=== PATIENT | female | born 1965 | race Caucasian/White ===

== ENCOUNTER 2016-12-30 08:40 | Outpatient (CLI) | payer OTHER | END 2016-12-30 23:59 | DX: Z00.00 Encounter for general adult medical examination without abnormal findings (principal); E11.65 Type 2 diabetes mellitus with hyperglycemia; E55.9 Vitamin D deficiency, unspecified; E78.2 Mixed hyperlipidemia; E03.9 Hypothyroidism, unspecified; Z79.899 Other long term (current) drug therapy ==

== ENCOUNTER 2017-01-29 08:38 | Outpatient (CLI) | payer OTHER ==
--- NOTE | 2017-01-30 15:45 | Mammography Report ---
DIGITAL SCREENING MAMMOGRAM: 01/29/2017 CLINICAL INDICATION: A 51-year-old for screening. COMPARISON: 11/2013, 09/2011, 07/2010, 11/2009, 05/2009, 05/2007. TECHNIQUE: Routine CC and MLO projections were obtained of the breasts. FINDINGS: The breasts again demonstrate scattered fibroglandular densities bilaterally. Punctate, t ypically benign calcifications are present. In the left upper outer central breast, there is a possi ble nodule. Further evaluation with spot compression views and possible ultrasound is recommended. No mammographically suspicious findings are appreciated in the right breast. IMPRESSION: INCOMPLETE EXAMINATION. RECOMMENDATION: Additional evaluation of the left breast as above. BI-RADS category 0, incomplete. STANDARD QUALIFYING STATEMENTS 1. This examination was reviewed with the aid of Computer-Aided Detection (CAD). 2. A negative or benign imaging report should not delay biopsy if clinically suspicious findings are present. Consider surgical consultation if warranted. More than 5% of cancers are not identified by i maging. 3. Dense breasts may obscure an underlying neoplasm. JOB #: [id number] EXT JOB #:[id number]
== END 2017-01-29 08:39 | disposition home or self-care (01) ==
LOC: DI 08:38
PROVIDERS: ATTEND Physician Assistant Medical
DX: Z12.31 Encounter for screening mammogram for malignant neoplasm of breast (principal); R92.8 Other abnormal and inconclusive findings on diagnostic imaging of breast
CPT/HCPCS: 77067

== ENCOUNTER 2017-02-06 13:04 | Outpatient (CLI) | payer OTHER | END 2017-02-06 13:05 | disposition home or self-care (01) | LOC: SC 13:04 | PROVIDERS: ATTEND Internal Medicine Pulmonary Disease | DX: G47.10 Hypersomnia, unspecified (principal); G47.8 Other sleep disorders; R06.83 Snoring; R51 Headache | CPT/HCPCS: 99203; 99212 ==

== ENCOUNTER 2017-02-11 13:51 | Emergency (ER) | payer OTHER ==
--- NOTE | 2017-02-11 14:03 | ED Physician Documentation ---
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 Recurred again today while sitting at desk at work, and lasted about similar. 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 Pain was sharp left chest area.) Timing - onset during: Sleep, Light activity Timing - duration: Minutes (30 minutes to an hour) Timing - details: Abrupt onset, Now resolved Quality: Aching, Sharp Location: Left chest Radiation: Jaw Improved by: No: Rest Worsened by: No: Exertion, Inspiration, Movement, Position Associated symptoms: Shortness of air. No: Diaphoresis, Nausea, Feeling faint / dizzy, General Weakness, Palpitations, Cough Similar symptoms before: Has not had sx before Recently seen: Not recently seen Review of Systems Constitutional: denies: Fever, Chills Nose: denies: Rhinorrhea / runny nose, Congestion Throat: denies: Sore throat Respiratory: denies: Cough GI: denies: Abdominal Pain, Nausea, Vomiting, Diarrhea : denies: Dysuria, Frequency Skin: denies: Rash, Lesions Musculoskeletal: denies: Extremity swelling Neurologic: denies: Generalized weakness, Focal weakness, Numbness, Near syncope Psychiatric: denies: Depressed, Anxiety, Insomnia Endocrine: denies: Weight loss, Weight gain, Easy bruising / bleeding PD PAST MEDICAL HISTORY - Past Medical History Cardiovascular: High cholesterol, Other Respiratory: Asthma, Pneumonia, Shortness of breath Endocrine/Autoimmune: HyPOthyroidism, Other GI: None : Incontinence, Frequency HEENT: Other Psych: Depression Musculoskeletal: Osteoarthritis, Chronic back pain Derm: Eczema - Past Surgical History General: Appendectomy Ortho: ACL reconstruction, 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, Other HEENT: Tonsil/Adenoidectomy - Present Medications Home Medications: Ambulatory Orders Medication Instructions Recorded Confirmed Fluticasone [Flonase] 2 sprays BERNARDO DAILY 05/29/15 02/11/17 Fluticasone/Salmeterol [Advair 1 inh INH BID 05/29/15 02/11/17 100-50 Diskus] Levothyroxine Sodium [Synthroid] 0 mcg PO DAILY 02/11/17 02/11/17 - Allergies Allergies/Adverse Reactions: Allergies Allergy/AdvReac Type Severity Reaction Status Date / Time codeine AdvReac Intermediate Nausea/Vomi Verified 02/11/17 14:01 tting/Itchi ng Latex, Natural Rubber AdvReac Intermediate Itching Verified 02/11/17 14:01 povidone-iodine AdvReac Intermediate Itching Verified 02/11/17 14:01 [From Betadine] soap * [From Betadine] AdvReac Intermediate Itching Verified 02/11/17 14:01 Sulfa (Sulfonamide AdvReac Unknown Unknown Verified 02/11/17 14:01 Antibiotics) - Family History Family history: reports: CAD. denies: Venous thromboembolism, Aortic aneursym, Aortic dissection PD ED PE NORMAL - Vitals Vital signs reviewed: Yes - General General: Alert and oriented X 3, No acute distress, Well developed/nourished - HEENT HEENT: Ears normal, Pharynx benign - Neck Neck: Supple, no meningeal sign, No adenopathy - Cardiac Cardiac: RRR, No murmur - Respiratory Respiratory: Clear bilaterally, Other (slight chestwall tenderness left anterior chestwall. ) - Abdomen Abdomen: Soft, Non tender - Derm Derm: Normal color, Warm and dry - Extremities Extremities: No tenderness to palpate, Normal ROM s pain, No edema, No calf tenderness / cord - Neuro Neuro: Alert and oriented X 3, No motor deficit, Normal speech - Psych Psych: Normal mood, Normal affect Results - Vitals Vitals: Vital Signs - 24 hr 02/11/17 02/11/17 13:54 15:52 Temperature 36.7 C Heart Rate 76 58 L Respiratory 18 18 Rate Blood Pressure 102/42 L 98/66 O2 Saturation 97 97 Oxygen O2 Source Room air - EKG (time done) 14:20 Rate: Rate (enter#) (63) Rhythm: NSR [place]: Normal Intervals: Normal NE QRS: Normal Ischemia: Normal ST segments. No: ST elevation c/w ischemia, ST depression - Labs Labs: Laboratory Tests 02/11/17 02/11/17 02/11/17 14:25 14:25 14:25 WBC 6.9 RBC 4.34 Hgb 12.5 Hct 37.5 MCV 86.6 MCH 28.9 MCHC 33.4 RDW 13.2 Plt Count 267 MPV 8.3 Neut # 3.4 Lymph # 2.6 Cook # 0.5 Eos # 0.4 Baso # 0.1 Absolute Nucleated RBC 0.00 Nucleated RBCs 0.0 ESR Sodium 140 Potassium 3.7 Chloride 106 Carbon Dioxide 25 Anion Gap 9.0 BUN 14 Creatinine 0.8 Estimated GFR (MDRD) 76 L Glucose 100 Calcium 9.2 Total Bilirubin 0.3 AST 28 ALT 26 Alkaline Phosphatase 67 Troponin I < 0.04 Total Protein 7.0 Albumin 4.1 Globulin 2.9 Albumin/Globulin Ratio 1.4 Lipase 19 L 02/11/17 14:25 WBC RBC Hgb Hct MCV MCH MCHC RDW Plt Count MPV Neut # Lymph # Cook # Eos # Baso # Absolute Nucleated RBC Nucleated RBCs ESR 15 Sodium Potassium Chloride Carbon Dioxide Anion Gap BUN Creatinine Estimated GFR (MDRD) Glucose Calcium Total Bilirubin AST ALT Alkaline Phosphatase Troponin I Total Protein Albumin Globulin Albumin/Globulin Ratio Lipase - Rads (name of study) chest Radiology: Prelim report reviewed, EMP read contemporaneously (no acute) PD MEDICAL DECISION MAKING - ED course Complexity details: reviewed results, considered differential (clinically does not seem like pneumonia, injury. Clinically low risk for PE. ECG and CXR are okay. Negative troponin with pain episode being about 12 hours ago, should be valid. ), d/w patient Departure - Departure Disposition: 01 Home, Self Care Clinical Impression: Left sided chest pain Condition: Stable Record reviewed to determine appropriate education?: Yes Instructions: ED Chest Pain Atypical Unkn Cause Follow-Up: Noris Marie PA-C [Primary Care Provider] - Comments: Uncertain cause of the pain today, but no signs of threatening problems. Try Ibuprofen or Naproxen twice daily for 3-5 days. Add Tylenol if needed for pains. Recheck if not better over the next few days. Sooner if other symptoms develop with it. Discharge Date/Time: 02/11/17 15:56
[2017-02-11] MEDS ORDERED: ASPIRIN 325 MG TABLET PO STA (14:23)
[2017-02-11] MEDS ORDERED: LIDOCAINE VISCOUS 2% 15 ML UDC MM STA (14:23)
[2017-02-11] MEDS ORDERED: MAG HYDROX/AL HYDROX/SIMETH 30 ML UDC PO STA (14:23)
[2017-02-11] MEDS ORDERED: ASPIRIN 325 MG TABLET PO ONE (14:26)
[2017-02-11] MEDS ORDERED: LIDOCAINE VISCOUS 2% 15 ML UDC MM ONE (14:30)
[2017-02-11] MEDS ORDERED: MAG HYDROX/AL HYDROX/SIMETH 30 ML UDC ONE (14:30)
[2017-02-11 14:44] LABS: BASOPHILS # (AUTO) 0.1 10^3/uL (0.0-0.1); BASOPHILS % (AUTO) 0.9 %; EOSINOPHILS # (AUTO) 0.4 10^3/uL (0.0-0.7); EOSINOPHILS % (AUTO) 5.2 %; HCT - HEMATOCRIT 37.5 % (37.0-47.0); HGB - HEMOGLOBIN 12.5 g/dL (12.0-16.0); LYMPHOCYTES # (AUTO) 2.6 10^3/uL (1.5-3.5); LYMPHOCYTES % (AUTO) 38.2 %; MEAN CORPUSCULAR HEMOGLOBIN 28.9 pg (27.0-31.0); MEAN CORPUSCULAR HGB CONC 33.4 g/dL (32.0-36.0); MEAN CORPUSCULAR VOLUME 86.6 fL (81.0-99.0); MEAN PLATELET VOLUME 8.3 fL (7.9-10.8); MONOCYTES # (AUTO) 0.5 10^3/uL (0.0-1.0); MONOCYTES % (AUTO) 6.7 %; NEUTROPHILS # (AUTO) 3.4 10^3/uL (1.5-6.6); RED BLOOD COUNT 4.34 10^6/uL (4.20-5.40); RED CELL DISTRIBUTION WIDTH 13.2 % (12.0-15.0); UNCORRECTED WHITE BLOOD COUNT 6.9 x10^3/uL; WHITE BLOOD COUNT 6.9 x10^3/uL (4.8-10.8)
[2017-02-11 14:55] LABS: ALBUMIN/GLOBULIN RATIO 1.4 (1.0-2.2); BILIRUBIN,TOTAL 0.3 mg/dL (0.2-1.0); CALCIUM 9.2 mg/dL (8.5-10.3); CREATININE 0.8 mg/dL (0.4-1.0); POTASSIUM 3.7 mmol/L (3.5-5.0)
--- NOTE | 2017-02-11 15:23 | XRAY Preliminary Report ---
Exam: XR Chest 2 View PA/LAT IMPRESSION: No acute cardiopulmonary abnormality. [facility] SITE ID: [id number]
--- NOTE | 2017-02-11 15:25 | XRAY Report ---
EXAM: CHEST RADIOGRAPHY EXAM DATE: 02/11/2017 02:38 PM. CLINICAL HISTORY: Anterior chest pain today. COMPARISON: 12/12/2015. TECHNIQUE: 2 views. FINDINGS: Lungs/Pleura: No confluent lung consolidation. Normal lung volumes. Scarring and/or atelectasis at th e inferior lingula. No pleural effusion or pneumothorax. Mediastinum: Heart and mediastinal contours are unremarkable. Other: Thoracic scoliosis. IMPRESSION: No acute cardiopulmonary abnormality. [facility] Referring Provider Line: [phone] SITE ID: [id number]
[2017-02-11 15:53] VITALS: BP 98/66
== END 2017-02-11 15:56 | disposition home or self-care (01) ==
LOC: ED 13:51
DX: R07.9 Chest pain, unspecified (principal); E78.00 Pure hypercholesterolemia, unspecified; E03.9 Hypothyroidism, unspecified; M19.90 Unspecified osteoarthritis, unspecified site
CPT/HCPCS: 36415; 71020; 80053; 83690; 84484; 85025; 85651; 93005; 93010; 99283; 99285; A9270

== ENCOUNTER 2017-02-20 12:55 | Outpatient (CLI) | payer OTHER ==
--- NOTE | 2017-02-21 07:34 | Mammography Report ---
DIGITAL SPECIAL MAMMOGRAPHIC VIEWS OF THE BREASTS ADDITIONAL VIEWS OF THE LEFT BREAST: 02/20/2017 CLINICAL HISTORY: A 51-year-old female who had an asymmetrical density noted in the upper outer quadr ant of the left breast on recent screening mammogram dated 01/29/2017. The patient returns today for additional views of the left breast and possibly left breast ultrasound. COMPARISON: 05/14/2007, 05/29/2009, 12/05/2009, 07/12/2010, 09/10/2011, 12/02/2013, 01/29/2017. TECHNIQUE: Coned down compression craniocaudad and oblique lateral views as well as a medial lateral view of the left breast were obtained with Hologic full field digital mammography. FINDINGS: Additional views of the left breast once again demonstrate a mass-like asymmetrical densit y in the 2 o'clock position of the left breast 7 cm from the left nipple. This asymmetrical density m easures 1.4 cm. Recommend a left breast ultrasound for further evaluation. LEFT BREAST ULTRASOUND: TECHNIQUE: Real-time scanning was performed with automobile rental representative static images obtained. FINDINGS: Left breast ultrasound demonstrates an 0.6 cm by 0.7 cm by 1.1 cm benign cyst at the 3 o'cl ock position of the left breast 7 cm from the left nipple. This benign cyst correlates in size and lo cation to the asymmetrical density noted on patient's additional mammographic views taken today. IMPRESSION: 1. SMALL MASS/ASYMMETRICAL DENSITY NOTED ON RECENT SCREENING MAMMOGRAM AND ADDITIONAL VIEWS OF THE LE FT BREAST DONE TODAY REPRESENTS A BENIGN CYST AT THE 3 O'CLOCK POSITION OF THE LEFT BREAST MEASURING 1.1 CM BY 0.6 CM BY 0.7 CM. BIRADS CATEGORY 2-BENIGN FINDINGS. RECOMMENDATION: ANNUAL BILATERAL SCREENING MAMMOGRAM. COMMENT: The patient was informed of the benign results of her examinations today and encouraged to r eturn for routine screening mammogram in one year. STANDARD QUALIFYING STATEMENTS 1. This examination was reviewed with the aid of Computer-Aided Detection (CAD). 2. A negative or benign imaging report should not delay biopsy if clinically suspicious findings are present. Consider surgical consultation if warranted. More than 5% of cancers are not identified by i maging. 3. Dense breasts may obscure an underlying neoplasm. JOB #: [id number] EXT JOB #:[id number]
== END 2017-02-20 12:56 | disposition home or self-care (01) ==
LOC: DI 12:55
PROVIDERS: ATTEND Physician Assistant Medical
DX: N60.02 Solitary cyst of left breast (principal); R92.2 Inconclusive mammogram
CPT/HCPCS: 76642

== ENCOUNTER 2017-03-08 19:34 | Outpatient (CLI) | payer OTHER | END 2017-03-08 19:35 | disposition home or self-care (01) | LOC: SC 19:34 | PROVIDERS: ATTEND Internal Medicine Pulmonary Disease | DX: G47.33 Obstructive sleep apnea (adult) (pediatric) (principal); Z68.39 Body mass index [BMI] 39.0-39.9, adult | CPT/HCPCS: 95810 ==

== ENCOUNTER 2017-03-28 09:10 | Outpatient (CLI) | payer OTHER | END 2017-03-28 09:11 | disposition home or self-care (01) | LOC: LAB.R 09:10 | PROVIDERS: ATTEND Physician Assistant Medical | DX: E03.9 Hypothyroidism, unspecified (principal) | CPT/HCPCS: 84443 ==

== ENCOUNTER 2017-04-16 09:17 | Outpatient (CLI) | payer OTHER | END 2017-04-16 09:18 | disposition home or self-care (01) | LOC: SC 09:17 | PROVIDERS: ATTEND Internal Medicine Pulmonary Disease | DX: G47.33 Obstructive sleep apnea (adult) (pediatric) (principal) | CPT/HCPCS: 99212; 99214 ==

== ENCOUNTER 2017-09-23 14:01 | Outpatient (CLI) | payer OTHER | END 2017-09-23 14:02 | LOC: LAB.R 14:01 | PROVIDERS: ATTEND Internal Medicine | DX: I80.9 Phlebitis and thrombophlebitis of unspecified site (principal); Z79.899 Other long term (current) drug therapy | CPT/HCPCS: 84443; 85379; 85651; 86140 ==

== ENCOUNTER 2017-09-24 08:00 | Outpatient (CLI) | payer OTHER ==
[2017-09-24 14:08] LABS: CHOL/HDL RATIO 6.1 (<4.4); CHOLESTEROL 238 mg/dL; HDL CHOLESTEROL 39 mg/dL; LDL CHOLESTEROL,CALCULATED 178 mg/dL; LDL/HDL RATIO 4.6 (<4.4); VLDL CHOLESTEROL 21 mg/dL
== END 2017-09-24 08:01 | disposition home or self-care (01) ==
LOC: LAB.R 08:00
PROVIDERS: ATTEND Physician Assistant Medical
DX: E66.01 Morbid (severe) obesity due to excess calories (principal); E78.2 Mixed hyperlipidemia; Z79.899 Other long term (current) drug therapy
CPT/HCPCS: 80061; 83721

== ENCOUNTER 2017-09-24 19:39 | Outpatient (CLI) | payer OTHER ==
--- NOTE | 2017-09-24 22:28 | Ultrasound Report ---
EXAM: LEFT LOWER EXTREMITY VENOUS ULTRASOUND EXAM DATE: 09/24/2017 08:15 PM. CLINICAL HISTORY: Superficial phlebitis. COMPARISON: None. TECHNIQUE: Real-time sonographic vascular imaging was performed by the court operations clerk through the lower extremity utilizing both color-flow and Doppler spectral analysis. Multiple guest service representative static terell ges were saved for review. FINDINGS: Common Femoral Vein (CFV): Normal. CFV-GSV Junction: Normal. Profunda Femoral Vein (PFV): Normal. Femoral Vein (FV) Prox: Normal. Femoral Vein (FV) Mid: Normal. Femoral Vein (FV) Dist: Limited visualization. Popliteal Vein: Normal. Posterior Tibial Veins: Not well seen. Peroneal Veins: Not seen. Contralateral Side CFV: Normal. Other: Mildly complex debris-containing fluid collection in the posterior medial left knee measuring 3.6 x 0.9 x 1.4 cm. Given appearance and sonographic location, this most likely represents a complex [place]'s cyst. IMPRESSION: 1. Limited visualization of the distal superficial femoral, posterior tibial and peroneal veins. Give n the limitations, no evidence for deep venous thrombosis. 2. Mildly complex left popliteal fossa cyst. [facility] Referring Provider Line: [phone] SITE ID: [id number]
== END 2017-09-24 19:40 | disposition home or self-care (01) ==
LOC: DI 19:39
PROVIDERS: ATTEND Internal Medicine
DX: I80.9 Phlebitis and thrombophlebitis of unspecified site (principal); M71.22 Synovial cyst of popliteal space [Baker], left knee; E66.01 Morbid (severe) obesity due to excess calories; E78.2 Mixed hyperlipidemia; Z79.899 Other long term (current) drug therapy
CPT/HCPCS: 80061; 83721

== ENCOUNTER 2017-10-13 09:17 | Outpatient (CLI) | payer OTHER ==
--- NOTE | 2017-10-13 10:19 | XRAY Report ---
ESOPHAGRAM: 10/13/2017 CLINICAL INDICATION: Dysphagia. FINDINGS: Esophagram was performed in the upright and prone positions. The esophagus is normal in caliber and contractility. No esophageal ulceration, mass lesion, or stricturing is identified. The hypopharynx appears normal. There is a small sliding hiatal hernia present, which did produce reflux. A 13 mm barium pill passed freely through the esophagus and into the stomach. IMPRESSION: SMALL SLIDING HIATAL HERNIA, PRODUCING REFLUX. NO EVIDENCE OF ESOPHAGEAL ULCERATION OR MASS LESION. FLUOROSCOPY TIME: 1 MINUTE 54 SECONDS; 18 SPOT IMAGES OBTAINED. TD: 10/13/2017 10:18
== END 2017-10-13 09:18 | disposition home or self-care (01) ==
LOC: DI 09:17
PROVIDERS: ATTEND Physician Assistant Medical
DX: K44.9 Diaphragmatic hernia without obstruction or gangrene (principal); K21.9 Gastro-esophageal reflux disease without esophagitis
CPT/HCPCS: 74220

== ENCOUNTER 2017-10-28 09:35 | Outpatient (CLI) | payer OTHER | END 2017-10-28 09:36 | disposition home or self-care (01) | LOC: LAB.R 09:35 | PROVIDERS: ATTEND Internal Medicine | DX: N30.00 Acute cystitis without hematuria (principal) | CPT/HCPCS: 87077; 87086 ==

== ENCOUNTER 2017-11-08 16:41 | Emergency (ER) | payer OTHER ==
[2017-11-08] MEDS ORDERED: ALBUTEROL NEB 2.5 MG/3 ML INH STA (17:43)
[2017-11-08] MEDS ORDERED: DEXAMETHASONE 10 MG/ML VIAL PO STA (17:43)
--- NOTE | 2017-11-08 17:56 | ED Physician Documentation ---
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, Other HEENT: Tonsil/Adenoidectomy - Present Medications Home Medications: Ambulatory Orders Medication Instructions Recorded Confirmed Fluticasone [Flonase] 2 sprays BERNARDO DAILY 05/29/15 02/11/17 Fluticasone/Salmeterol [Advair 1 inh INH BID 05/29/15 02/11/17 100-50 Diskus] Levothyroxine Sodium [Synthroid] 0 mcg PO DAILY 02/11/17 02/11/17 Azithromycin [Zithromax] 250 mg PO DAILY #4 tablet 11/08/17 predniSONE [Deltasone] 60 mg PO DAILY 5 Days tablet 11/08/17 - Allergies Allergies/Adverse Reactions: Allergies Allergy/AdvReac Type Severity Reaction Status Date / Time codeine AdvReac Intermediate Nausea/Vomi Verified 02/11/17 14:01 tting/Itchi ng Latex, Natural Rubber AdvReac Intermediate Itching Verified 02/11/17 14:01 povidone-iodine AdvReac Intermediate Itching Verified 02/11/17 14:01 [From Betadine] soap * [From Betadine] AdvReac Intermediate Itching Verified 02/11/17 14:01 Sulfa (Sulfonamide AdvReac Unknown Unknown Verified 02/11/17 14:01 Antibiotics) - Social History Does the pt smoke?: No Smoking Status: Never smoker Does the pt drink ETOH?: No Does the pt have substance abuse?: No - Immunizations Immunizations are current?: Yes - POLST Patient has POLST: No PD ED PE NORMAL - Vitals Vital signs reviewed: Yes (states that is her normal blood pressure) - General General: Alert and oriented X 3 - HEENT HEENT: PERRL - Neck Neck: Supple, no meningeal sign - Cardiac Cardiac: RRR - Respiratory Respiratory: No respiratory distress, Other (mild wheezing on the right) - Abdomen Abdomen: Soft, Non tender - Derm Derm: Normal color - Neuro Neuro: Alert and oriented X 3 Results - Vitals Vitals: Vital Signs - 24 hr 11/08/17 11/08/17 11/08/17 16:49 17:58 19:12 Temperature 37.0 C 36.6 C Heart Rate 84 80 86 Respiratory 15 18 21 Rate Blood Pressure 98/57 L 94/63 O2 Saturation 96 96 Oxygen O2 Source Room air - Labs Labs: Laboratory Tests 11/08/17 17:45 Influenza A (Rapid) Negative Influenza B (Rapid) Negative Influenza Types A,B Ag - - Rads (name of study) CXR Radiology: See rad report (streaky lingular infiltrate may be pneumonia) Departure - Departure Disposition: 01 Home, Self Care Clinical Impression: Pneumonia Qualifiers: Pneumonia type: due to unspecified organism Laterality: unspecified laterality Lung location: lower lobe of lung Qualified Code(s): J18.1 - Lobar pneumonia, unspecified organism Condition: Good Instructions: ED Pneumonia Adult, ED Inhaler Use Follow-Up: Chin Xavier MD [Primary Care Provider] - Prescriptions: Azithromycin [Zithromax] 250 mg PO DAILY #4 tablet predniSONE [Deltasone] 60 mg PO DAILY 5 Days tablet Comments: The flu swabs were negative but you do have a developing pneumonia Please take the antibiotics as prescribed. Use your albuterol inhaler 2 puffs every 4 hr for the next three days then as needed Also take the steroids to decrease airway swelling and wheezing Follow up with Dr Xavier next week if not better. Return to the ER if worse Forms: Activity restrictions
--- NOTE | 2017-11-08 18:21 | XRAY Report ---
EXAM: CHEST RADIOGRAPHY EXAM DATE: 11/08/2017 05:59 PM. CLINICAL HISTORY: Cough. COMPARISON: 02/11/2017. TECHNIQUE: 2 views. FINDINGS: Lungs/Pleura: Streaky and mildly heterogeneous lingular opacities mildly increased from before. No fo bear consolidation. No pleural effusion. No pneumothorax. Normal volumes. Mediastinum: Heart and mediastinal contours are within normal limits. Other: None. IMPRESSION: Streaky lingular atelectasis versus pneumonia. [facility] Referring Provider Line: [phone] SITE ID: [id number]
[2017-11-08] MEDS ORDERED: AZITHROMYCIN 250 MG TABLET PO STA (19:00)
[2017-11-08 19:13] VITALS: BP 94/63
== END 2017-11-08 19:44 | disposition home or self-care (01) ==
LOC: ED 16:41
DX: J18.1 Lobar pneumonia, unspecified organism (principal)
CPT/HCPCS: 71046; 87275; 87276; 94640; 94664; 99283; 99284; A9270

== ENCOUNTER 2017-11-13 05:55 | Emergency (ER) | payer OTHER ==
[2017-11-13 06:25] LABS: BILIRUBIN,URINE NEGATIVE (NEGATIVE); GLUCOSE, URINE (UA) NEGATIVE (NEGATIVE); KETONES,URINE (UA) NEGATIVE (NEGATIVE); LEUKOCYTE ESTERASE, URINE NEGATIVE (NEGATIVE); NITRITE,URINE NEGATIVE (NEGATIVE); OCCULT BLOOD,URINE NEGATIVE (NEGATIVE); PH,URINE 5.5 PH (5.0-7.5); PROTEIN,URINE NEGATIVE (NEGATIVE); UROBILINOGEN,URINE 0.2 (NORMAL) E.U./dL (NORMAL)
[2017-11-13 06:27] LABS: CLARITY,URINE CLEAR (CLEAR)
--- NOTE | 2017-11-13 06:38 | XRAY Preliminary Report ---
Exam: XR CHEST 2 VIEW X-RAY IMPRESSION: Mild medial right lung base opacity, suspicious for pneumonia. [facility] SITE ID: [id number]
--- NOTE | 2017-11-13 06:42 | XRAY Report ---
EXAM: CHEST RADIOGRAPHY EXAM DATE: 11/13/2017 06:29 AM. CLINICAL HISTORY: Cough. COMPARISON: 11/08/2017. TECHNIQUE: 2 views. FINDINGS: Lungs/Pleura: Medial right lung base opacity with clear left lung. No pneumothorax or effusion. Mediastinum: Heart and mediastinal contours are unremarkable. Other: Stable thoracic levoscoliosis. IMPRESSION: Mild medial right lung base opacity, suspicious for pneumonia. [facility] Referring Provider Line: [phone] SITE ID: [id number]
[2017-11-13] MEDS ORDERED: BENZONATATE 100 MG CAPSULE PO STA (07:08)
[2017-11-13] MEDS ORDERED: ALBUTEROL NEB 2.5 MG/3 ML INH STA (07:08)
[2017-11-13] MEDS ORDERED: ACETAMINOPHEN 325 MG TABLET PO STA (07:08)
[2017-11-13] MEDS ORDERED: KETOROLAC 30 MG/ML VIAL IM STA (07:08)
--- NOTE | 2017-11-13 07:09 | ED Physician Documentation ---
PD HPI URI - Stated complaint Stated Complaint: FEVER - Chief complaint Chief Complaint: General - History obtained from History obtained from: Patient - History of Present Illness Timing - onset: How many weeks ago (1-2) Timing duration: Weeks Timing details: Gradual onset, Still present (has had cough for couple weeks, worsened and seen in ED 5 days ago. Rx with Zpack and Prednisone and had ALbuterol MDI. Was not improved so seen in PCP yesterday and Rx different abx and to continue prednisone. She is having more cough and unable to sleep due to the cough. [place] feverish at home with thermometer at home reading 101.) Associated symptoms: Fever, Chills, Nasal congestion, Productive cough. No: Sore throat, Chest pain, NVD, Bilateral edema Contributing factors: COPD / asthma. No: Sick contact, Travel, Immunocompromised Worsened by: Activity Similar symptoms before: Has not had sx before Recently seen: Clinic, Emergency Dept Review of Systems Constitutional: reports: Fever, Chills, Myalgias Nose: reports: Rhinorrhea / runny nose, Congestion Throat: denies: Sore throat Respiratory: reports: Cough GI: denies: Nausea, Vomiting, Diarrhea Skin: denies: Rash PD PAST MEDICAL HISTORY - Past Medical History Cardiovascular: High cholesterol, Other Respiratory: Asthma, Pneumonia, Shortness of breath Endocrine/Autoimmune: HyPOthyroidism, Other GI: None : Incontinence, Frequency HEENT: Other Psych: Depression Musculoskeletal: Osteoarthritis, Chronic back pain Derm: Eczema - Past Surgical History Past Surgical History: Yes General: Appendectomy Ortho: ACL reconstruction, 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, Other HEENT: Tonsil/Adenoidectomy - Present Medications Home Medications: Ambulatory Orders Medication Instructions Recorded Confirmed Fluticasone [Flonase] 2 sprays BERNARDO DAILY 05/29/15 02/11/17 Fluticasone/Salmeterol [Advair 1 inh INH BID 05/29/15 02/11/17 100-50 Diskus] Levothyroxine Sodium [Synthroid] 0 mcg PO DAILY 02/11/17 02/11/17 Azithromycin [Zithromax] 250 mg PO DAILY #4 tablet 11/08/17 predniSONE [Deltasone] 60 mg PO DAILY 5 Days tablet 11/08/17 Benzonatate [Tessalon] 100 mg PO TID PRN #25 capsule 11/13/17 HYDROcod/ACETAM 5/325 [[place] 5/325] 1 tab PO Q6H PRN #12 tablet 11/13/17 - Allergies Allergies/Adverse Reactions: Allergies Allergy/AdvReac Type Severity Reaction Status Date / Time codeine AdvReac Intermediate Nausea/Vomi Verified 02/11/17 14:01 tting/Itchi ng Latex, Natural Rubber AdvReac Intermediate Itching Verified 02/11/17 14:01 povidone-iodine AdvReac Intermediate Itching Verified 02/11/17 14:01 [From Betadine] soap * [From Betadine] AdvReac Intermediate Itching Verified 02/11/17 14:01 Sulfa (Sulfonamide AdvReac Unknown Unknown Verified 02/11/17 14:01 Antibiotics) - Social History Does the pt smoke?: No Smoking Status: Never smoker Does the pt drink ETOH?: No Does the pt have substance abuse?: No - Immunizations Immunizations are current?: Yes - POLST Patient has POLST: No PD ED PE NORMAL - Vitals Vital signs reviewed: Yes - General General: Alert and oriented X 3, No acute distress, Well developed/nourished - HEENT HEENT: Ears normal, Pharynx benign - Neck Neck: Supple, no meningeal sign, No adenopathy - Cardiac Cardiac: RRR, No murmur - Respiratory Respiratory: No: Clear bilaterally (wheezing and tight sounds diffuse; no crackles nor coarse sounds. ) - Abdomen Abdomen: Soft, Non tender - Back Back: No CVA TTP - Derm Derm: Normal color, Warm and dry - Extremities Extremities: No deformity, No tenderness to palpate, Normal ROM s pain, No edema , No calf tenderness / cord - Neuro Neuro: Alert and oriented X 3, No motor deficit, Normal speech Results - Vitals Vitals: Vital Signs - 24 hr 11/13/17 11/13/17 11/13/17 06:00 07:26 07:31 Temperature 37.7 C H 37.7 C H Heart Rate 86 83 70 Respiratory 18 20 16 Rate Blood Pressure 116/71 113/55 L O2 Saturation 97 100 11/13/17 08:16 Temperature 37.6 C H Heart Rate 80 Respiratory 15 Rate Blood Pressure 90/46 L O2 Saturation 98 Oxygen O2 Source Room air - Labs Labs: Laboratory Tests 11/13/17 06:17 Urine Color YELLOW Urine Clarity CLEAR Urine pH 5.5 Ur Specific [place] 1.025 Urine Protein NEGATIVE Urine Glucose (UA) NEGATIVE Urine Ketones NEGATIVE Urine Occult Blood NEGATIVE Urine Nitrite NEGATIVE Urine Bilirubin NEGATIVE Urine Urobilinogen 0.2 (NORMAL) Ur Leukocyte Esterase NEGATIVE Ur Microscopic Review NOT INDICATED Urine Culture Comments NOT INDICATED PD MEDICAL DECISION MAKING - ED course Complexity details: reviewed results, re-evaluated patient (she feels better with neb treatment. Was changed to different abx yesterday and had steroids continued. Add meds for cough and would not change regimen otherwise. ), considered differential, d/w patient Departure - Departure Disposition: Home, Self Care Clinical Impression: Pneumonia Qualifiers: Pneumonia type: due to unspecified organism Laterality: left Lung location: lower lobe of lung Qualified Code(s): J18.1 - Lobar pneumonia, unspecified organism Fever Qualifiers: Fever type: unspecified Qualified Code(s): R50.9 - Fever, unspecified Dyspnea Qualifiers: Dyspnea type: shortness of breath Qualified Code(s): R06.02 - Shortness of breath Condition: Stable Record reviewed to determine appropriate education?: Yes Instructions: ED Pneumonia Adult Prescriptions: Benzonatate [Tessalon] 100 mg PO TID PRN #25 capsule PRN Reason: Cough HYDROcod/ACETAM 5/325 [[place] 5/325] 1 tab PO Q6H PRN #12 tablet PRN Reason: Pain Comments: Continue your current medication regimen of the new antibiotic continued steroids and using her albuterol nebulizer. To this add Tessalon if needed for cough and hydrocodone if needed for cough or pains. Follow-up with your primary care in 2-3 days. Discharge Date/Time: 11/13/17 08:18
[2017-11-13 08:18] VITALS: BP 90/46
== END 2017-11-13 08:18 | disposition home or self-care (01) ==
LOC: ED 05:55
DX: J18.1 Lobar pneumonia, unspecified organism (principal); J45.909 Unspecified asthma, uncomplicated
CPT/HCPCS: 71046; 81003; 94640; 96372; 99283; 99284; A9270; 81001; 87086

== ENCOUNTER 2017-11-15 10:23 | Emergency (ER) | payer OTHER ==
--- NOTE | 2017-11-15 12:22 | ED Physician Documentation ---
History of Present Illness - Stated complaint Stated Complaint: MED REACTION/DAZED - Chief complaint Chief Complaint: Neuro - History obtained from History obtained from: Patient, Family - History of Present Illness Pain level max: 6 Pain level now: 6 Improved by: nothing Worsened by: nothing - Additonal information Additional information: Patient states that she has been sick for 2 weeks, URI symptoms. Took tessalon last night and "didn't feel right". States took a neb treatment and felt better. Took another tessalon today and symptoms recurred. Came back for evaluation today. States now has central chest pain, mid sternal. 02/08. Started this am. No rash. Does have fevers. Recently diagnosed with pneumonia. Was changed to moxifloxacin for her antibiotic 2 days ago. Review of Systems Ten Systems: 10 systems reviewed and negative Constitutional: reports: Fever (subjecgive). denies: Chills Ears: denies: Ear pain Nose: reports: Rhinorrhea / runny nose, Congestion Throat: denies: Sore throat Cardiac: reports: Chest pain / pressure Respiratory: reports: Dyspnea, Cough, Wheezing GI: denies: Abdominal Pain, Nausea, Vomiting, Diarrhea : denies: Dysuria Skin: denies: Rash Musculoskeletal: denies: Neck pain, Back pain Neurologic: denies: Focal weakness, Numbness, Headache PD PAST MEDICAL HISTORY - Past Medical History Cardiovascular: High cholesterol, Other Respiratory: Asthma, Pneumonia, Shortness of breath Endocrine/Autoimmune: HyPOthyroidism, Other GI: None : Incontinence, Frequency HEENT: Other Psych: Depression Musculoskeletal: Osteoarthritis, Chronic back pain Derm: Eczema - Past Surgical History Past Surgical History: Yes General: Appendectomy Ortho: ACL reconstruction, Arthroscopic surgery /[employer]: Tubal ligation, Other HEENT: Tonsil/Adenoidectomy - Present Medications Home Medications: Ambulatory Orders Medication Instructions Recorded Confirmed Fluticasone [Flonase] 2 sprays BERNARDO DAILY 05/29/15 02/11/17 Fluticasone/Salmeterol [Advair 1 inh INH BID 05/29/15 02/11/17 100-50 Diskus] Levothyroxine Sodium [Synthroid] 0 mcg PO DAILY 02/11/17 02/11/17 predniSONE [Deltasone] 60 mg PO DAILY 5 Days tablet 11/08/17 Benzonatate [Tessalon] 100 mg PO TID PRN #25 capsule 11/13/17 HYDROcod/ACETAM 5/325 [Milton 5/325] 1 tab PO Q6H PRN #12 tablet 11/13/17 Albuterol 2.5 mg INH Q4H PRN #30 neb 11/15/17 - Allergies Allergies/Adverse Reactions: Allergies Allergy/AdvReac Type Severity Reaction Status Date / Time codeine AdvReac Intermediate Nausea/Vomi Verified 11/15/17 10:47 tting/Itchi ng Latex, Natural Rubber AdvReac Intermediate Itching Verified 11/15/17 10:47 povidone-iodine AdvReac Intermediate Itching Verified 11/15/17 10:47 [From Betadine] soap * [From Betadine] AdvReac Intermediate Itching Verified 11/15/17 10:47 Sulfa (Sulfonamide AdvReac Unknown Unknown Verified 11/15/17 10:47 Antibiotics) - Social History Does the pt smoke?: No Smoking Status: Never smoker Does the pt drink ETOH?: No Does the pt have substance abuse?: No - Immunizations Immunizations are current?: Yes - POLST Patient has POLST: No PD ED PE NORMAL - Vitals Vital signs reviewed: Yes - General General: Alert and oriented X 3, No acute distress, Well developed/nourished - HEENT HEENT: PERRL, Ears normal, Moist mucous membranes, Pharynx benign - Neck Neck: Supple, no meningeal sign - Cardiac Cardiac: RRR, Strong equal pulses - Respiratory Respiratory: No respiratory distress, Other (wheezing B) - Abdomen Abdomen: Soft, Non tender, Non distended - Back Back: No spinal TTP - Derm Derm: Warm and dry, No rash - Extremities Extremities: No edema, No calf tenderness / cord - Neuro Neuro: Alert and oriented X 3 - Psych Psych: Normal mood, Normal affect Results - Vitals Vitals: Vital Signs - 24 hr 11/15/17 11/15/17 11/15/17 10:41 13:00 13:05 Temperature 36.9 C Heart Rate 99 86 82 Respiratory 18 16 15 Rate Blood Pressure 99/57 L 105/65 O2 Saturation 96 98 11/15/17 11/15/17 11/15/17 14:19 16:33 16:45 Temperature Heart Rate 85 81 72 Respiratory 24 24 15 Rate Blood Pressure 92/57 L 100/56 L O2 Saturation 96 95 11/15/17 11/15/17 11/15/17 17:10 17:19 17:20 Temperature 37.7 C H 37.7 C H Heart Rate 98 98 98 Respiratory 19 16 16 Rate Blood Pressure 97/52 L 97/52 L O2 Saturation 91 L 94 94 Oxygen O2 Source Room air - EKG (time done) 1241 Rate: Rate (enter#) (77) Rhythm: NSR [place]: Normal Intervals: Normal [place] QRS: Normal Ischemia: Normal ST segments Computer interpretation: Agree with computer - Labs Labs: Laboratory Tests 11/15/17 11/15/17 11/15/17 12:31 12:31 12:31 WBC 13.3 H RBC 4.53 Hgb 12.6 Hct 39.1 MCV 86.3 MCH 27.9 MCHC 32.4 RDW 14.2 Plt Count 295 MPV 8.7 Neut # Not Reportable Lymph # Not Reportable [place] # Not Reportable Eos # Not Reportable Baso # Not Reportable Absolute Nucleated RBC Not Reportable Total Counted 100 Band Neuts % (Manual) 3 Abnorm Lymph % (Manual) 0 Nucleated RBC % Not Reportable Neutrophils # (Manual) 11.3 H Lymphocytes # (Manual) 1.2 L Monocytes # (Manual) 0.8 Eosinophils # (Manual) 0.0 Basophils # (Manual) 0.0 Differential Comment MANUAL DIFFERENTIAL Manual Slide Review Indicated Platelet Estimate NORMAL (130-450,000) Platelet Morphology NORMAL APPEARANCE RBC Morph Micro Appear NORMAL APPEARANCE Sodium 137 Potassium 3.6 Chloride 101 Carbon Dioxide 25 Anion Gap 11.0 BUN 13 Creatinine 0.8 Estimated GFR (MDRD) 76 L Glucose 107 H Calcium 8.6 Total Bilirubin 0.5 AST 132 H ALT 218 H Alkaline Phosphatase 125 H Troponin I < 0.04 Total Protein 7.0 Albumin 3.5 Globulin 3.5 Albumin/Globulin Ratio 1.0 Lipase < 10 L Urine Color Urine Clarity Urine pH Ur Specific [place] Urine Protein Urine Glucose (UA) Urine Ketones Urine Occult Blood Urine Nitrite Urine Bilirubin Urine Urobilinogen Ur Leukocyte Esterase Ur Microscopic Review Urine Culture Comments 11/15/17 14:10 WBC RBC Hgb Hct MCV MCH MCHC RDW Plt Count MPV Neut # Lymph # [place] # Eos # Baso # Absolute Nucleated RBC Total Counted Band Neuts % (Manual) Abnorm Lymph % (Manual) Nucleated RBC % Neutrophils # (Manual) Lymphocytes # (Manual) Monocytes # (Manual) Eosinophils # (Manual) Basophils # (Manual) Differential Comment Manual Slide Review Platelet Estimate Platelet Morphology RBC Morph Micro Appear Sodium Potassium Chloride Carbon Dioxide Anion Gap BUN Creatinine Estimated GFR (MDRD) Glucose Calcium Total Bilirubin AST ALT Alkaline Phosphatase Troponin I Total Protein Albumin Globulin Albumin/Globulin Ratio Lipase Urine Color YELLOW Urine Clarity CLEAR Urine pH 6.0 Ur Specific [place] <=1.005 Urine Protein NEGATIVE Urine Glucose (UA) NEGATIVE Urine Ketones NEGATIVE Urine Occult Blood NEGATIVE Urine Nitrite NEGATIVE Urine Bilirubin NEGATIVE Urine Urobilinogen 0.2 (NORMAL) Ur Leukocyte Esterase NEGATIVE Ur Microscopic Review NOT INDICATED Urine Culture Comments NOT INDICATED - Rads (name of study) cxr Radiology: Prelim report reviewed, EMP read contemporaneously, See rad report ( Increased airspace disease in the right lung) Abdominal ultrasound Radiology: Prelim report reviewed, EMP read contemporaneously, See rad report ( Normal) PD MEDICAL DECISION MAKING - ED course Complexity details: reviewed old records, reviewed results, re-evaluated patient , considered differential, d/w patient, d/w family ED course: Patient is a 52-year-old female who presents to the emergency department with what appears to be continued pneumonia. Feels better after nebulizer treatment as well as steroids. Chest pain resolved. She also had elevation of her liver function tests, had mild tenderness on examination in the right upper quadrant. Therefore a ultrasound was performed to evaluate for possible cholecystitis. This is found to be negative. Likely that she has inflammation of the liver from her pneumonia. Will have her recheck her liver function tests with her doctor after treatment. Will have her stop the Tessalon at home. Patient is not hypoxic. No respiratory distress. She states she has chronic hypotension. States blood pressures in the 90s are normal for her. Patient counseled regarding signs and symptoms for which I believe and urgent re-evaluation would be necessary. Patient with good understanding of and agreement to plan and is comfortable going home at this time This document was made in part using voice recognition software. While efforts are made to proofread this document, sound alike and grammatical errors may occur. Departure - Departure Disposition: Home, Self Care Clinical Impression: Elevated transaminase level Pneumonia Qualifiers: Pneumonia type: due to unspecified organism Laterality: right Lung location: lower lobe of lung Qualified Code(s): J18.1 - Lobar pneumonia, unspecified organism Asthma Qualifiers: Asthma severity: unspecified severity Asthma persistence: unspecified Asthma complication type: with acute exacerbation Qualified Code(s): J45.901 - Unspecified asthma with (acute) exacerbation Condition: Good Instructions: ED Pneumonia Adult Follow-Up: Chin Xavier MD [Primary Care Provider] - Within 3 Days Prescriptions: Albuterol 2.5 mg INH Q4H PRN #30 neb PRN Reason: Wheezing Comments: Stop the Tessalon at home. Return if you worsen. Continue your antibiotics. You should have your liver tests rechecked after your pneumonia is cleared. This can be done with your doctor. It is likely they are elevated from the infection in your lungs. Discharge Date/Time: 11/15/17 17:28
[2017-11-15] MEDS ORDERED: IPRATROPIUM/ALBUTEROL 3 ML NEB INH STA (12:23)
[2017-11-15] MEDS ORDERED: ASPIRIN CHEW 81 MG TABLET PO STA (12:24)
[2017-11-15] MEDS ORDERED: SODIUM CHLORIDE 0.9% 1,000 ML IV ONE (12:24)
[2017-11-15 12:41] LABS: BASOPHILS % (AUTO) 0.6 %; EOSINOPHILS % (AUTO) 0.1 %; HGB - HEMOGLOBIN 12.6 g/dL (12.0-16.0); LYMPHOCYTES % (AUTO) 6.8 %; MEAN CORPUSCULAR HEMOGLOBIN 27.9 pg (27.0-31.0); MEAN CORPUSCULAR HGB CONC 32.4 g/dL (32.0-36.0); MEAN CORPUSCULAR VOLUME 86.3 fL (81.0-99.0); MEAN PLATELET VOLUME 8.7 fL (7.9-10.8); MONOCYTES % (AUTO) 4.8 %; NEUTROPHILS % (AUTO) 87.7 %; PLT - PLATELET COUNT 295 10^3/uL (130-450); RED BLOOD COUNT 4.53 10^6/uL (4.20-5.40); RED CELL DISTRIBUTION WIDTH 14.2 % (12.0-15.0); WHITE BLOOD COUNT 13.3 x10^3/uL (4.8-10.8)
[2017-11-15 12:53] LABS: ALBUMIN 3.5 g/dL (3.2-5.5); ALKALINE PHOSPHATASE 125 IU/L (42-121); ALT ALANINE AMINOTRANSFERASE 218 IU/L (10-60); AST ASPARTATE AMINOTRANSFERASE 132 IU/L (10-42); BILIRUBIN,TOTAL 0.5 mg/dL (0.2-1.0); BUN - BLOOD UREA NITROGEN 13 mg/dL (6-20); CALCIUM 8.6 mg/dL (8.5-10.3); CARBON DIOXIDE - CO2 25 mmol/L (21-32); CHLORIDE 101 mmol/L (101-111); CREATININE 0.8 mg/dL (0.4-1.0); GFR - MDRD 76 (>89); GLUCOSE 107 mg/dL (70-100); LIPASE < 10 U/L (22-51); SODIUM 137 mmol/L (135-145)
[2017-11-15 12:59] LABS: ABNORMAL LYMPHS % (MANUAL) 0 %
[2017-11-15 13:00] LABS: BAND NEUTROPHILS % (MANUAL) 3 %; DIFFERENTIAL COMMENT MANUAL DIFFERENTIAL; LYMPHOCYTES # (MANUAL) 1.2 10^3/uL (1.5-3.5); LYMPHOCYTES % (MANUAL) 9 %; MONOCYTES # (MANUAL) 0.8 10^3/uL (0.0-1.0); NEUTROPHILS # (MANUAL) 11.3 10^3/uL (1.5-6.6); NEUTROPHILS % (MANUAL) 82 %; PLATELET ESTIMATE, MANUAL NORMAL (130-450,000) (NORMAL); PLATELET MORPHOLOGY NORMAL APPEARANCE (NORMAL); RBC MORPHOLOGY (MULTIPLE) NORMAL APPEARANCE (NORMAL)
--- NOTE | 2017-11-15 13:30 | XRAY Preliminary Report ---
Exam: XR CHEST 1 VIEW X-RAY IMPRESSION: Increased airspace disease in the right lung. The left lung remains clear. [facility] SITE ID: [id number]
--- NOTE | 2017-11-15 13:30 | XRAY Report ---
EXAM: CHEST RADIOGRAPHY EXAM DATE: 11/15/2017 01:06 PM. CLINICAL HISTORY: Chest pain. COMPARISON: Chest radiograph dated 11/13/2017. TECHNIQUE: 1 view. FINDINGS: Lungs/Pleura: Increased patchy opacities in the right lung. No pleural effusion or pneumothorax. Mediastinum: Within exam limitations, the cardiomediastinal contour is normal. Other: None. IMPRESSION: Increased airspace disease in the right lung. The left lung remains clear. [facility] Referring Provider Line: [phone] SITE ID: [id number]
[2017-11-15] MEDS ORDERED: methylPREDNISolone SUCCINATE 125 MG/2 ML VIAL IVP STA (13:54)
[2017-11-15 14:20] LABS: BILIRUBIN,URINE NEGATIVE (NEGATIVE); GLUCOSE, URINE (UA) NEGATIVE (NEGATIVE); KETONES,URINE (UA) NEGATIVE (NEGATIVE); LEUKOCYTE ESTERASE, URINE NEGATIVE (NEGATIVE); NITRITE,URINE NEGATIVE (NEGATIVE); OCCULT BLOOD,URINE NEGATIVE (NEGATIVE); PROTEIN,URINE NEGATIVE (NEGATIVE); UROBILINOGEN,URINE 0.2 (NORMAL) E.U./dL (NORMAL)
[2017-11-15] MEDS ORDERED: ONDANSETRON 4 MG/2 ML VIAL IVP STA (14:27)
[2017-11-15 14:43] LABS: CLARITY,URINE CLEAR (CLEAR)
--- NOTE | 2017-11-15 15:53 | Ultrasound Report ---
EXAM: ABDOMEN ULTRASOUND LIMITED, RUQ EXAM DATE: 11/15/2017 03:16 PM. CLINICAL HISTORY: RUQ pain. COMPARISON: None. TECHNIQUE: Real-time scanning was performed with static images obtained. FINDINGS: Liver: Normal in size and echotexture. 19 cm. Main portal vein flow: Hepatopetal. Gallbladder: Normal. No stones, wall thickening, or sonographic Spence's sign. Biliary System: CBD measures 2.9 mm. No intrahepatic or extrahepatic ductal dilatation. Other: The right kidney appears unremarkable and measures 11.2 cm. The pancreas appears unremarkable. IMPRESSION: Normal. No cholelithiasis or cholecystitis. [facility] Referring Provider Line: [phone] SITE ID: [id number]
[2017-11-15] MEDS ORDERED: ALBUTEROL NEB 2.5 MG/3 ML INH STA (15:59)
[2017-11-15] MEDS ORDERED: cefTRIAXone 1 GM VIAL IVP STA (15:59)
[2017-11-15 17:11] VITALS: BP 97/52
== END 2017-11-15 17:28 | disposition home or self-care (01) ==
LOC: ED 10:23
DX: J18.9 Pneumonia, unspecified organism (principal); J45.901 Unspecified asthma with (acute) exacerbation; E78.00 Pure hypercholesterolemia, unspecified; E03.9 Hypothyroidism, unspecified; M19.90 Unspecified osteoarthritis, unspecified site
CPT/HCPCS: 36415; 71045; 76705; 80053; 81003; 83690; 84484; 85025; 93005; 94640; 96361; 96374; 96375; 99284; 99285; A9270; 81001; 87086

== ENCOUNTER 2017-11-17 08:00 | Outpatient (CLI) | payer OTHER ==
[2017-11-17 17:14] LABS: BASOPHILS % (AUTO) 0.2 %; HGB - HEMOGLOBIN 12.1 g/dL (12.0-16.0); LYMPHOCYTES % (AUTO) 10.3 %; MEAN CORPUSCULAR HEMOGLOBIN 27.5 pg (27.0-31.0); MEAN CORPUSCULAR HGB CONC 31.7 g/dL (32.0-36.0); MEAN CORPUSCULAR VOLUME 86.6 fL (81.0-99.0); MEAN PLATELET VOLUME 9.1 fL (7.9-10.8); MONOCYTES % (AUTO) 4.3 %; NEUTROPHILS % (AUTO) 85.2 %; PLT - PLATELET COUNT 287 10^3/uL (130-450); RED BLOOD COUNT 4.39 10^6/uL (4.20-5.40); RED CELL DISTRIBUTION WIDTH 14.6 % (12.0-15.0); WHITE BLOOD COUNT 9.4 x10^3/uL (4.8-10.8)
[2017-11-17 17:19] LABS: ABNORMAL LYMPHS % (MANUAL) 0 %
[2017-11-17 17:20] LABS: ALBUMIN 3.2 g/dL (3.2-5.5); ALBUMIN/GLOBULIN RATIO 0.9 (1.0-2.2); BILIRUBIN,TOTAL 0.4 mg/dL (0.2-1.0); CALCIUM 8.5 mg/dL (8.5-10.3); TOTAL PROTEIN 6.8 g/dL (6.7-8.2)
[2017-11-17 17:39] LABS: BAND NEUTROPHILS % (MANUAL) 8 %; DIFFERENTIAL COMMENT MANUAL DIFFERENTIAL; LYMPHOCYTES # (MANUAL) 1.7 10^3/uL (1.5-3.5); LYMPHOCYTES % (MANUAL) 18 %; MONOCYTES # (MANUAL) 0.3 10^3/uL (0.0-1.0); NEUTROPHILS # (MANUAL) 7.4 10^3/uL (1.5-6.6); NEUTROPHILS % (MANUAL) 71 %; PLATELET ESTIMATE, MANUAL NORMAL (130-450,000) (NORMAL); PLATELET MORPHOLOGY NORMAL APPEARANCE (NORMAL); RBC MORPHOLOGY (MULTIPLE) NORMAL APPEARANCE (NORMAL)
== END 2017-11-17 08:01 | disposition home or self-care (01) ==
LOC: LAB.R 08:00
PROVIDERS: ATTEND Physician Assistant Medical
DX: R79.89 Other specified abnormal findings of blood chemistry (principal); J18.9 Pneumonia, unspecified organism
CPT/HCPCS: 80053; 85025

== ENCOUNTER 2017-11-18 10:43 | Outpatient (CLI) | payer OTHER ==
--- NOTE | 2017-11-18 11:53 | XRAY Report ---
TWO VIEW CHEST: 11/18/2017 CLINICAL INDICATION: Followup pneumonia. COMPARISON: 11/15/2017, 11/13/2017, 11/08/2017. FINDINGS: Frontal and lateral views of the chest demonstrate a normal cardiac silhouette. Right greater than left infiltrates continue to increase. No effusion or pneumothorax is seen. IMPRESSION: CONTINUED WORSENING OF RIGHT GREATER THAN LEFT INFILTRATES. TD: 11/18/2017 11:52
== END 2017-11-18 10:44 | disposition home or self-care (01) ==
LOC: DI 10:43
PROVIDERS: ATTEND Physician Assistant Medical
DX: J18.9 Pneumonia, unspecified organism (principal)
CPT/HCPCS: 71046

== ENCOUNTER 2018-01-28 06:16 | Day surgery (SDC) | payer OTHER ==
[2018-01-28] MEDS ORDERED: LACTATED RINGERS 1,000 ML IV ONE (06:31)
[2018-01-28] MEDS ORDERED: LIDO GARGLE 30 ML BOTTLE ONE (07:13)
[2018-01-28] MEDS ORDERED: fentaNYL 250 MCG/5 ML VIAL IVP ONE (07:44)
[2018-01-28] MEDS ORDERED: MIDAZOLAM 2 MG/2 ML VIAL IVP ONE (07:44)
[2018-01-28 09:08] VITALS: BP 96/53
== END 2018-01-28 06:17 | disposition home or self-care (01) ==
LOC: SDS 06:16
PROVIDERS: ATTEND Surgery
PROC: 0DB48ZX Excision of Esophagogastric Junction, Via Natural or Artificial Opening Endoscopic, Diagnostic (ICD-10-PCS; principal; 2018-01-28 07:30)
DX: R13.10 Dysphagia, unspecified (principal); K44.9 Diaphragmatic hernia without obstruction or gangrene; Z00.00 Encounter for general adult medical examination without abnormal findings; E55.9 Vitamin D deficiency, unspecified; E78.2 Mixed hyperlipidemia; E03.9 Hypothyroidism, unspecified; Z79.899 Other long term (current) drug therapy; K22.10 Ulcer of esophagus without bleeding
CPT/HCPCS: 36415; 43239; 80053; 80061; 82306; 83721; 84443; 85025; A9270; J3010; J7120; 88305

== ENCOUNTER 2018-01-28 07:22 | Outpatient (CLI) | payer OTHER ==
[2018-01-28 07:46] LABS: BASOPHILS # (AUTO) 0.1 10^3/uL (0.0-0.1); BASOPHILS % (AUTO) 1.8 %; EOSINOPHILS # (AUTO) 0.5 10^3/uL (0.0-0.7); EOSINOPHILS % (AUTO) 8.6 %; HGB - HEMOGLOBIN 12.6 g/dL (12.0-16.0); LYMPHOCYTES # (AUTO) 2.1 10^3/uL (1.5-3.5); LYMPHOCYTES % (AUTO) 36.1 %; MEAN CORPUSCULAR HEMOGLOBIN 28.9 pg (27.0-31.0); MEAN CORPUSCULAR HGB CONC 33.1 g/dL (32.0-36.0); MEAN CORPUSCULAR VOLUME 87.4 fL (81.0-99.0); MEAN PLATELET VOLUME 8.6 fL (7.9-10.8); MONOCYTES # (AUTO) 0.4 10^3/uL (0.0-1.0); MONOCYTES % (AUTO) 7.5 %; NEUTROPHILS # (AUTO) 2.7 10^3/uL (1.5-6.6); PLT - PLATELET COUNT 300 10^3/uL (130-450); RED BLOOD COUNT 4.36 10^6/uL (4.20-5.40); RED CELL DISTRIBUTION WIDTH 14.1 % (12.0-15.0); WHITE BLOOD COUNT 5.9 x10^3/uL (4.8-10.8)
[2018-01-28 08:00] LABS: ALBUMIN 3.9 g/dL (3.2-5.5); ALBUMIN/GLOBULIN RATIO 1.4 (1.0-2.2); ALKALINE PHOSPHATASE 70 IU/L (42-121); ALT ALANINE AMINOTRANSFERASE 24 IU/L (10-60); AST ASPARTATE AMINOTRANSFERASE 25 IU/L (10-42); BILIRUBIN,TOTAL 0.7 mg/dL (0.2-1.0); BUN - BLOOD UREA NITROGEN 14 mg/dL (6-20); CALCIUM 9.1 mg/dL (8.5-10.3); CARBON DIOXIDE - CO2 26 mmol/L (21-32); CHLORIDE 105 mmol/L (101-111); CHOL/HDL RATIO 6.6 (<4.4); CHOLESTEROL 249 mg/dL; CREATININE 0.8 mg/dL (0.4-1.0); GFR - MDRD 76 (>89); GLUCOSE 104 mg/dL (70-100); HDL CHOLESTEROL 38 mg/dL; LDL CHOLESTEROL,CALCULATED 181 mg/dL; LDL CHOLESTEROL,DIRECT 177 mg/dL; LDL/HDL RATIO 4.8 (<4.4); SODIUM 139 mmol/L (135-145); TOTAL PROTEIN 6.7 g/dL (6.7-8.2); VLDL CHOLESTEROL 30 mg/dL
== END 2018-01-28 07:23 | disposition home or self-care (01) ==
LOC: LAB 07:22
PROVIDERS: ATTEND Physician Assistant Medical
DX: Z00.00 Encounter for general adult medical examination without abnormal findings (principal); E55.9 Vitamin D deficiency, unspecified; E78.2 Mixed hyperlipidemia; E03.9 Hypothyroidism, unspecified; Z79.899 Other long term (current) drug therapy
CPT/HCPCS: 36415; 80053; 80061; 82306; 83721; 84443; 85025

== ENCOUNTER 2018-02-24 10:16 | Outpatient (CLI) | payer OTHER ==
--- NOTE | 2018-02-26 11:01 | Mammography Report ---
Procedure Date: 02/24/2018 Accession Number: [id number] / [id number] Procedure: [facility] - Screening Mammo Dig Bilat CPT Code: FULL RESULT: EXAM: Screening Mammo Dig Bilat DATE: 02/24/2018 10:36 AM CLINICAL HISTORY: 52-year-old nulliparous patient for screening TECHNIQUE: Bilateral CC and MLO views were obtained. COMPARISON: 02/20/2017, 01/29/2017, 12/02/2013, 09/10/2011, 07/12/2010, 12/05/2009 FINDINGS: The breasts demonstrate scattered fibroglandular densities bilaterally. Punctate, typically benign calcifications are present. No suspicious masses, clustered microcalcifications, or regions of architectural distortion are identified. IMPRESSION: Benign findings RECOMMENDATION: Routine annual screening unless otherwise clinically indicated. BIRADS CATEGORY 2: Benign findings STANDARD QUALIFYING STATEMENTS: 1. This examination was reviewed with the aid of Computer-Aided Detection (CAD). 2. A negative or benign imaging report should not delay biopsy if clinically suspicious findings are present. Consider surgical consultation if warrented. More than 5% of cancers are not identified by imaging. 3. Dense breasts may obscure an underlying neoplasm.
== END 2018-02-24 10:17 | disposition home or self-care (01) ==
LOC: DI 10:16
PROVIDERS: ATTEND Physician Assistant Medical
DX: Z12.31 Encounter for screening mammogram for malignant neoplasm of breast (principal)
CPT/HCPCS: 77067

== ENCOUNTER 2018-03-26 08:00 | Outpatient (CLI) | payer OTHER ==
[2018-03-26 13:31] LABS: ALT ALANINE AMINOTRANSFERASE 36 IU/L (10-60); AST ASPARTATE AMINOTRANSFERASE 34 IU/L (10-42); LDL CHOLESTEROL,DIRECT 128 mg/dL
== END 2018-03-26 08:01 ==
LOC: LAB.R 08:00
PROVIDERS: ATTEND Physician Assistant Medical
DX: Z79.899 Other long term (current) drug therapy (principal); E78.2 Mixed hyperlipidemia; E03.9 Hypothyroidism, unspecified
CPT/HCPCS: 83721; 84443; 84450; 84460

== ENCOUNTER 2018-07-28 14:52 | Outpatient (CLI) | payer OTHER | END 2018-07-28 14:53 | disposition home or self-care (01) | LOC: LAB.R 14:52 | PROVIDERS: ATTEND Physician Assistant Medical | DX: Z79.899 Other long term (current) drug therapy (principal); E03.9 Hypothyroidism, unspecified | CPT/HCPCS: 84443 ==

== ENCOUNTER 2018-09-15 08:00 | Outpatient (CLI) | payer OTHER | END 2018-09-15 23:59 | disposition home or self-care (01) | LOC: LAB.R 08:00 | PROVIDERS: ATTEND Physician Assistant Medical | DX: Z79.899 Other long term (current) drug therapy (principal); E03.9 Hypothyroidism, unspecified | CPT/HCPCS: 84443 ==

== ENCOUNTER 2018-12-08 09:16 | Outpatient (CLI) | payer OTHER | END 2018-12-08 09:17 | disposition home or self-care (01) | LOC: SC 09:16 | PROVIDERS: ATTEND Nurse Practitioner Family | DX: G47.33 Obstructive sleep apnea (adult) (pediatric) (principal) | CPT/HCPCS: 99212; 99215 ==

== ENCOUNTER 2019-04-05 11:27 | Outpatient (CLI) | payer OTHER ==
[2019-04-05 12:35] VITALS: BP 96/64
--- NOTE | 2019-04-05 12:35 | SLEEP CARE CONSULTATION ---
Information from patient questionnaire entered by Julissa Plaza. I have reviewed and concur with the information entered by Julissa Plaza. This document represents the service I personally performed and the decisions made by me, Ángela Ortiz, RN, MSN, BUSINESS PROCESS MANAGER. - History of Present Illness HPI: SHANNAN HUERTA was diagnosed to have mild, AHI 5.1, obstructive sleep apnea-hypopnea syndrome and returned today for CPAP therapy first compliance follow-up. There was a 2 month delay in receiving her CPAP device. She contacted her insurance to see if problem with authorization but no problem. The company apologized for delay. She had tooth and jaw pain with oral appliance, now resolved. Her snoring has also resolved per spouse. However, she woke with dry mouth today and wonders if she snored. She has started a work out routine at the gym and has gained weight rather than lose as hoped. She has also noted more calve and feet pain with work out. No redness or swelling of calves. She has made an appointment with her PCP and is thinking of seeing a infection prevention practitioner as well. Equipment obtained from: [facility] Mask style: Nasal Mask brand: Respironics Backup mask available: No Last cushion change: no - just recieved notification she can order equipment - Compliance Data Reviewed with Patient Average duration of nightly device use: 5.75 Compliance rate % (4+hrs/night over past 30 nights): 80.0 Current pressure setting (cmH2O): 4-15 Humidity settin Heated hose settin - Subjective Patient concerns: reports: aerophagia (She had one episode only.), nasal congestion (reduced use of CPAP for several days due to difficulty breathing through her nose. She uses generic Flonase one spray each nostril daily.), dry mouth, nose, throat (Only this morning.). denies: mask discomfort, air blowing in eyes (she has noted increase lately with nasal cushion feeling more floppy.), mask leak noise, condensation in mask/hose, epistaxis Observed to snore while using device: No Current pressure setting perceived as: comfortable On therapy, patient: reports: sleeping better (less noctura), awakening more refreshed, being more awake and alert during the day (most of time), more rested overall, other (She is no longer waking to headache.). denies: drowsiness while driving Initial Baring Sleepiness Scale score: 11 Current Baring Sleepiness Scale score: 9 - Review of Systems Review of systems same as previous: No Neurological: denies: disorientation (vertigo no longer present.,) Musculoskeletal: reports: joint pain (sees an orthopedist for knees), mobility problems (can lose balance in work out , no falls due to knee pain.) - Allergies/Medications Medication Name (generic/name brand) Strength & Dosage Levothyroxine Sodium 50mcg tab ten per week in divided doses Lipitor 10mg tab one daily at bedtime Advair Diskus 500-50 mcg/dose Inhalation One puff twice daily ProAir HFA 109 (90 base) mcg/act Inhalation One-two puffs q4-6hr as needed Cloderm 0.1% External Cream Apply as directed to eyelids Flonase 50 mcg/act Nasal Suspension Two sprays each nostril daily Vitamin D 50,000IU cap one each week Aleve 220mg cap one-two daily as needed Motrin 200mg tab as needed Allergy List Latex Tessalon Perles Sulfa Codeine Oxycodone Betadine Doxycycline Hyclate No known drug allergies: Yes Allergies and home medications reviewed: Yes - Physical Examination Blood Pressure: 96/64 Cuff size: long Heart Rate: 72 O2 Saturation: 98 Height: 5 ft 3 in Weight (kg): 103.147 kg Body Mass Index: 40.2 BMI Classification: Class 3 - Impression 1. Obstructive Sleep Apnea-Hypopnea Syndrome, mild , with good treatment compliance and good apnea control. On CPAP therapy, there is improved sleep quality, lack of morning headache and is more rested overall. For nasal congestion, she is already at maximum humidity. Thus I gave her a sample of saline nasal spray to use prior to CPAP to clear nose of dried secretions and wash off adhering allergens. In addition, she can shower at night rather than in morning to wash off body allergens and facilitate nasal drainage. She is also to use her Flonase twice a day rather than daily , one spray per nostril. She is to continue changing the filter regularly. If unable to use CPAP due to illness or lack of electricity, she is to avoid sleeping supine where her apnea is more severe. Patient's apnea severity and rationale for treatment to reduce apnea, improve sleep quality and reduce cardiovascular and cerebrovascular events was reviewed. I also reviewed the benefit of consistent device use of CPAP for depression/anxiety. For her knee pain and balance concerns with work out , she is to follow up with PCP for further evaluation. - Plan Plan: Change auto CPAP pressure at 5-10 cm H2O. Notify me if snoring with the mask or feeling that the pressure is too much or too little. Attempt to lose weight. Implement methods to reduce nasal congestion. Follow up with PCP for further evaluation of knee pain / balance concerns in work out Return for follow-up in 3 months, or sooner if concerns arise. I spent 100% of this 45 minute visit face to face with the patient with greater than 50% of this was spent time counseling the patient and coordination of care.
== END 2019-04-05 11:28 | disposition home or self-care (01) ==
LOC: SC 11:27
PROVIDERS: ATTEND Nurse Practitioner Family
DX: G47.33 Obstructive sleep apnea (adult) (pediatric) (principal)
CPT/HCPCS: 99212; 99215

== ENCOUNTER 2019-05-16 09:25 | Outpatient (CLI) | payer OTHER | END 2019-05-16 09:26 | disposition home or self-care (01) | LOC: RT 09:25 | PROVIDERS: ATTEND Nurse Practitioner | DX: J45.909 Unspecified asthma, uncomplicated (principal) | CPT/HCPCS: 94010 ==

== ENCOUNTER 2019-08-04 09:46 | Outpatient (CLI) | payer OTHER ==
[2019-08-04 10:11] LABS: BASOPHILS # (AUTO) 0.1 10^3/uL (0.0-0.1); BASOPHILS % (AUTO) 1.4 %; EOSINOPHILS # (AUTO) 0.3 10^3/uL (0.0-0.7); EOSINOPHILS % (AUTO) 4.5 %; HGB - HEMOGLOBIN 12.1 g/dL (12.0-16.0); LYMPHOCYTES # (AUTO) 2.6 10^3/uL (1.5-3.5); MEAN CORPUSCULAR HEMOGLOBIN 29.4 pg (27.0-31.0); MEAN CORPUSCULAR HGB CONC 32.4 g/dL (32.0-36.0); MEAN PLATELET VOLUME 9.8 fL (7.9-10.8); MONOCYTES # (AUTO) 0.4 10^3/uL (0.0-1.0); MONOCYTES % (AUTO) 6.1 %; NEUTROPHILS % (AUTO) 46.7 %; PLT - PLATELET COUNT 335 10^3/uL (130-450); RED BLOOD COUNT 4.11 10^6/uL (4.20-5.40); RED CELL DISTRIBUTION WIDTH 13.4 % (12.0-15.0); WHITE BLOOD COUNT 6.4 x10^3/uL (4.8-10.8)
[2019-08-04 10:38] LABS: ALBUMIN 4.3 g/dL (3.2-5.5); ALBUMIN/GLOBULIN RATIO 1.5 (1.0-2.2); ALKALINE PHOSPHATASE 71 IU/L (42-121); ALT ALANINE AMINOTRANSFERASE 19 IU/L (10-60); AST ASPARTATE AMINOTRANSFERASE 22 IU/L (10-42); BILIRUBIN,TOTAL 0.7 mg/dL (0.2-1.0); BUN - BLOOD UREA NITROGEN 15 mg/dL (6-20); CALCIUM 9.2 mg/dL (8.5-10.3); CARBON DIOXIDE - CO2 25 mmol/L (21-32); CHLORIDE 106 mmol/L (101-111); CHOL/HDL RATIO 3.7 (<4.4); CHOLESTEROL 194 mg/dL; CREATININE 0.8 mg/dL (0.4-1.0); GFR - MDRD 75 (>89); GLUCOSE 97 mg/dL (70-100); HDL CHOLESTEROL 53 mg/dL; LDL CHOLESTEROL,CALCULATED 122 mg/dL; LDL/HDL RATIO 2.3 (<4.4); SODIUM 140 mmol/L (135-145); TOTAL PROTEIN 7.2 g/dL (6.7-8.2); VLDL CHOLESTEROL 19 mg/dL
== END 2019-08-04 09:47 | disposition home or self-care (01) ==
LOC: LAB 09:46
PROVIDERS: ATTEND Nurse Practitioner
DX: K21.9 Gastro-esophageal reflux disease without esophagitis (principal); R73.9 Hyperglycemia, unspecified; E55.9 Vitamin D deficiency, unspecified; Z79.899 Other long term (current) drug therapy; E66.1 Drug-induced obesity; J45.909 Unspecified asthma, uncomplicated; E03.9 Hypothyroidism, unspecified; E78.5 Hyperlipidemia, unspecified
CPT/HCPCS: 36415; 80053; 80061; 82306; 83721; 84443; 85025

== ENCOUNTER 2019-10-22 12:58 | Outpatient (CLI) | payer OTHER ==
--- NOTE | 2019-11-02 10:46 | Mammography Report ---
Reason: ROUTINE MAMMO Procedure Date: 10/22/2019 Accession Number: [id number] / [id number] Procedure: [facility] - Screening Mammo Dig Bilat CPT Code: Final Report FULL RESULT: EXAM: Screening Mammo Dig Bilat DATE: 10/22/2019 1:41 PM CLINICAL HISTORY: Screening encounter. TECHNIQUE: (B) - Bilateral CC and MLO views were obtained. COMPARISON: 02/24/2018 through 12/05/2009. PARENCHYMAL PATTERN: (A) - The breast(s) demonstrate(s) scattered fibroglandular densities. FINDINGS: There are no suspicious masses, calcifications, or areas of distortion. IMPRESSION: Negative examination. BI-RADS category 1. RECOMMENDATION: (ANNUAL) - Recommend routine annual screening mammography. BI-RADS CATEGORY: (1) - Negative. STANDARD QUALIFYING STATEMENTS: 1. This examination was not reviewed with the aid of Computer-Aided Detection (CAD). 2. A negative or benign imaging report should not preclude biopsy if clinically suspicious findings are present. 3. Dense breasts may obscure an underlying neoplasm. 4. This examination was reviewed without the aid of 3D breast imaging (tomosynthesis).
== END 2019-10-22 12:59 | disposition home or self-care (01) ==
LOC: DI 12:58
PROVIDERS: ATTEND Nurse Practitioner
DX: Z12.31 Encounter for screening mammogram for malignant neoplasm of breast (principal)
CPT/HCPCS: 77067

== ENCOUNTER 2020-02-01 10:15 | Outpatient (CLI) | payer OTHER ==
[2020-02-01 10:46] LABS: BASOPHILS # (AUTO) 0.1 10^3/uL (0.0-0.1); BASOPHILS % (AUTO) 1.5 %; EOSINOPHILS # (AUTO) 0.4 10^3/uL (0.0-0.7); EOSINOPHILS % (AUTO) 5.3 %; HGB - HEMOGLOBIN 13.5 g/dL (12.0-16.0); LYMPHOCYTES # (AUTO) 2.7 10^3/uL (1.5-3.5); MEAN CORPUSCULAR HEMOGLOBIN 30.1 pg (27.0-31.0); MEAN CORPUSCULAR HGB CONC 32.7 g/dL (32.0-36.0); MEAN CORPUSCULAR VOLUME 92.2 fL (81.0-99.0); MEAN PLATELET VOLUME 10.4 fL (7.9-10.8); MONOCYTES # (AUTO) 0.6 10^3/uL (0.0-1.0); MONOCYTES % (AUTO) 7.4 %; NEUTROPHILS # (AUTO) 3.7 10^3/uL (1.5-6.6); NEUTROPHILS % (AUTO) 49.7 %; PLT - PLATELET COUNT 283 10^3/uL (130-450); RED BLOOD COUNT 4.48 10^6/uL (4.20-5.40); RED CELL DISTRIBUTION WIDTH 14.9 % (12.0-15.0); WHITE BLOOD COUNT 7.4 x10^3/uL (4.8-10.8)
[2020-02-01 10:56] LABS: CALCIUM 9.5 mg/dL (8.5-10.3); CREATININE 0.7 mg/dL (0.4-1.0)
== END 2020-02-01 10:16 | disposition home or self-care (01) ==
LOC: LAB 10:15
PROVIDERS: ATTEND Orthopaedic Surgery
DX: Z01.812 Encounter for preprocedural laboratory examination (principal)
CPT/HCPCS: 36415; 80048; 85025

== ENCOUNTER 2020-04-26 11:06 | Outpatient (CLI) | payer OTHER ==
[2020-04-26] MEDS ORDERED: IOVERSOL 320 50 ML VIAL ONE (11:23)
[2020-04-26] MEDS ORDERED: IOVERSOL 320 100 ML VIAL IVP ONE ×2 (11:23→12:47)
--- NOTE | 2020-04-26 14:31 | CT Report ---
PROCEDURE: Abdomen/Pelvis W INDICATIONS: ABDOMINAL PAIN CONTRAST: IV CONTRAST: Optiray 320 ml: 100 PO CONTRAST: Optiray 320 ml50 TECHNIQUE: After the administration of iodinated nonionic contrast, 5 mm thick sections acquired from the diaphr agms to the symphysis. 5 mm thick coronal and sagittal reformats were acquired. For radiation dose reduction, the following was used: automated exposure control, adjustment of mA and/or kV according to patient size. COMPARISON: 11/21/2015 CT abdomen/pelvis. FINDINGS: Image quality: Excellent. ABDOMEN: Lung bases: Lung bases are clear. Heart size is normal. Solid organs: Liver and spleen are normal in size and enhancement. Gallbladder appears normal Bili jodi system is non dilated. Pancreas enhances normally. No adrenal nodules. Kidneys demonstrate nor mal size and enhancement, without hydronephrosis. Peritoneum and bowel: Bowel loops demonstrate normal wall thickness and caliber. No free fluid or a ir. Nodes and vessels: No retroperitoneal or mesenteric adenopathy by size criteria. Aorta and inferior vena cava are normal in size. Miscellaneous: No ventral hernias. PELVIS: Genitourinary: Bladder wall thickness is normal. Miscellaneous: No inguinal hernias or adenopathy. Bones: No suspicious bony lesions. No vertebral body compression fractures. IMPRESSION: No acute disease, a source of current pain within the abdomen/pelvis is not identified. Reviewed by: Angel Luis Reyes MD on 04/26/2020 2:29 PM PDT Approved by: Angel Luis Reyes MD on 04/26/2020 2:29 PM PDT Station ID: [id number]
== END 2020-04-26 11:07 | disposition home or self-care (01) ==
LOC: DI 11:06
PROVIDERS: ATTEND Family Medicine
DX: R10.9 Unspecified abdominal pain (principal)
CPT/HCPCS: 74177; Q9967

== ENCOUNTER 2020-05-04 16:54 | Outpatient (CLI) | payer OTHER ==
--- NOTE | 2020-05-04 17:27 | SLEEP CARE CONSULTATION ---
Information from patient questionnaire entered by Rasheeda Pitts. I have reviewed and concur with the information entered by Rasheeda Pitts. This document represents the service I personally performed and the decisions made by , Macy De Anda ARNP. History of Present Illness Service Date and Time: 05/04/2020 165 Previous diagnosis: Mild, Obstructive Sleep Apnea-Hypopnea Syndrome AHI: 5.1 Reason for follow up: other (10-month followup-Needs supplies) Equipment type: CPAP Equipment obtained from: [facility] (getting supplies as needed) Mask style: Nasal Backup mask available: Yes (old mask) Last cushion change: several months Prior sleep studies: Yes Year and Where: [facility] 2016 Type of Sleep Study: Polysomnography HPI additional information: SHANNAN HUERTA was diagnosed to have mild, AHI 5.1, obstructive sleep apnea-hypopnea syndrome and returned today for CPAP therapy nine month follow-up with need of supplies. CPAP Compliance Data - Data Reviewed with Patient Average duration of nightly device use: 6 h 17 min Compliance rate %: 77.2 Current pressure setting (cmH2O): 5-10 Humidity settin Heated hose settin Average residual AHI: 2.5 Average large leak: 2 sec Subjective Patient concerns: reports: dry mouth, nose, throat (only when mouth is staying open since surgery), other (opening mouth). denies: aerophagia, mask discomfort, air blowing in eyes, mask leak noise, condensation in mask/hose, nasal congestion, epistaxis Observed to snore while using device: No Current pressure setting perceived as: comfortable On therapy, patient: reports: sleeping better, awakening more refreshed, being more awake and alert during the day, more rested overall. denies: drowsiness while driving Initial [place] Sleepiness Scale score: 10 Current [place] Sleepiness Scale score: 7 Allergies and Home Medications Drug allergies reviewed: Yes (see list) Home medication list reviewed: Yes (hydrocodone, tylenol and ibuprofen prn pain for total knee replacement) Review of Systems Review of systems same as previous: No (Total knee replacement on February 21, 2020, sciatica) Physical Exam Heart Rate: 76 O2 Saturation: 96 Height: 5 ft 3 in Weight: 199 lb Body Mass Index: 35.2 BMI Classification: Obese Impression and Plan 1. Obstructive Sleep Apnea-Hypopnea Syndrome, mild, with good treatment complian ce and good apnea control. On CPAPtherapy, there is improved sleep quality and feels more rested overall. She missed her annual follow up due to Covid pandemic and the clinic being closed to appointments. She usually gets supplies as needed. She states since she had her total knee replacement surgery she is finding that her mouth is falling open after she falls asleep. This will wake her up several times a night and she is getting a little bit of a dry mouth too. She has gotten frustrated with not being able to sleep and takes off the CPAP mask. She is developing some mild morning headaches since this started. She would like to try a Dreamwear full face mask since she has been happy with the Dreamwear nasal cushion for fit and function. We did discuss possibly using a chin strap but she would like to try the full face mask instead. I will set her up with a mask refitting and update of her supplies as needed. She was advised to call if she continued to have issues with mask after her refitting, the pressure feels too high or too low. She states she has lost 35-40 pounds in the last several months so her pressure needs may have changed. She states when she puts on the mask the pressure feel fine, it is just later with her mouth coming open that she is having problems with now. Patient's apnea severity and rationale for treatment to reduce apnea, improve sleep quality and reduce c ardiovascular and cerebrovascular events was reviewed. I also reviewed the benefit of consistent device use of CPAP for depression/anxiety and asthma. * Continue auto CPAP pressure at 6-10 cmH2O * Mask refitting * Notify me if snoring with mask or feeling that the pressure is too much or too little * Attempt to lose weight * Call this office if any problems using CPAP, aerophagia or pressure feels too high/too low * Return for follow up in 1 year, or sooner if concerns arise Visit Type: In Office Time Spent with Patient (minutes): 17 Provider Statement: I spent 100% of the Face to Face Visit with the patient with greater than 50% spent counseling the patient and coordination of care.
== END 2020-05-04 16:55 | disposition home or self-care (01) ==
LOC: SC 16:54
PROVIDERS: ATTEND Nurse Practitioner Family
DX: G47.33 Obstructive sleep apnea (adult) (pediatric) (principal); E66.9 Obesity, unspecified; Z68.35 Body mass index [BMI] 35.0-35.9, adult
CPT/HCPCS: 99212; 99213

== ENCOUNTER 2020-11-09 10:31 | Outpatient (CLI) | payer OTHER ==
--- NOTE | 2020-11-10 10:12 | Ultrasound Report ---
LIMITED ULTRASOUND OF RIGHT BREAST: 11/09/2020 CLINICAL: Focal right breast pain. Comparison is made to exams dated: 11/09/2020 mammogram, 10/22/2019 mammogram, 02/24/2018 mammogram, mammogram, 02/20/2017 ultrasound, and 01/29/2017 mammogram - [facility]. Color flow and real-time ultrasound of the right breast 9-11 o'clock region were performed on the are as of interest. Lim scale images of the real-time examination were reviewed. There are 2 benign-appearing oval normal size lymph nodes in the right axillary tail at 11:00. These oval normal lymph nodes are of mixed echogenicity with fatty tiffanie. Color flow imaging demonstrates that there is no increase in vascularity. Otherwise, no discrete cystic or solid mass lesion identified in the area of pain. IMPRESSION: BENIGN There is no sonographic evidence of malignancy. There are no abnormalities seen in the right breast to correspond with the pain in the upper outer qu adrant of the lateral right breast and in the axillary tail, however, clinical followup is recommende d. Return to annual mammogram screening schedule is recommended. This exam was interpreted at Station ID: [id number]. Electronically Signed By: Clifford Gaines M.D. ddp/:11/09/2020 11:59:27 Ultrasound BI-RADS: 2 Benign BI-RADS CATEGORY: (2) - 2 RECOMMENDATION: (ANNUAL) - Recommend routine annual screening mammography. [id number] return to screening LATERALITY: (B)
--- NOTE | 2020-11-10 10:12 | Mammography Report ---
BILATERAL DIGITAL DIAGNOSTIC MAMMOGRAM 3D/2D: 11/09/2020 CLINICAL: Occasional right breast pain. Comparison is made to exams dated: 10/22/2019 mammogram, 02/24/2018 mammogram, 02/20/2017 mammogram, 12/02/2013 mammogram, and 01/29/2017 mammogram - [facility]. The tissue of both breasts is heterogeneously dense. This may lower the sensitivity of mammography. No significant masses, calcifications, or other findings are seen in either breast. IMPRESSION: INCOMPLETE: NEEDS ADDITIONAL IMAGING EVALUATION There is no abnormality seen in the right breast to correspond with the pain in the outer aspect, how ever, ultrasound is recommended. Ultrasound will be performed immediately following the current exam. This exam was interpreted at Station ID: [id number]. NOTE: For mammograms, a report in lay terms will be sent to the patient. Approximately 15% of breast malignancies will not be visualized mammographically. In the management of a palpable breast mass, a negative mammogram must not discourage biopsy of a clinically suspicious lesion. Electronically Signed By: Clifford Gaines M.D. ddp/:11/09/2020 11:11:13 ACR BI-RADS Category 0: Incomplete [id number] PARENCHYMAL PATTERN: (D) - The breast(s) demonstrate(s) heterogeneously dense fibroglandular parmonet santana. BI-RADS CATEGORY: (0) - 0 Ultrasound [id number] Immediate follow-up LATERALITY: (B)
== END 2020-11-09 10:32 | disposition home or self-care (01) ==
LOC: DI 10:31
PROVIDERS: ATTEND Family Medicine
DX: R92.8 Other abnormal and inconclusive findings on diagnostic imaging of breast (principal)

== ENCOUNTER 2021-02-24 03:08 | Emergency (ER) | payer OTHER ==
--- NOTE | 2021-02-24 03:29 | ED Physician Documentation ---
PD HPI CHEST PAIN - Stated complaint Stated Complaint: L JAW, CHEST, SHOULDER PX - Chief complaint Chief Complaint: General - History obtained from History obtained from: Patient - History of Present Illness Timing - onset: How many hours ago (30 minutes), Today (25 minutes SETTER UP) Timing - onset during: Sleep, Rest Timing - duration: Minutes (20-30) Timing - details: Abrupt onset, Still present Quality: Aching, Sharp, Pain Location: Left chest Radiation: Neck, Left upper extremity Improved by: No: Rest Worsened by: Movement, Palpation. No: Exertion, Inspiration Associated symptoms: No: Shortness of air, Diaphoresis, Nausea, Feeling faint / dizzy, Palpitations Similar symptoms before: Has not had sx before Recently seen: Not recently seen Review of Systems Constitutional: denies: Fever, Chills Nose: denies: Rhinorrhea / runny nose, Congestion Throat: denies: Sore throat Respiratory: denies: Cough GI: denies: Nausea, Vomiting Musculoskeletal: denies: Extremity swelling PD PAST MEDICAL HISTORY - Past Medical History Cardiovascular: High cholesterol, Other Respiratory: Asthma, Pneumonia, Shortness of breath Endocrine/Autoimmune: HyPOthyroidism, Other GI: None : Incontinence, Frequency HEENT: Other Psych: Depression Musculoskeletal: Osteoarthritis, Chronic back pain Derm: Eczema - Past Surgical History Past Surgical History: Yes General: Appendectomy Ortho: ACL reconstruction, Arthroscopic surgery /TRAPEZE ARTIST: Tubal ligation, Other HEENT: Tonsil/Adenoidectomy - Present Medications Home Medications: Ambulatory Orders Medication Instructions Recorded Confirmed Fluticasone [Flonase] 2 sprays BERNARDO DAILY 05/29/15 02/24/21 Fluticasone/Salmeterol [Advair 1 inh INH BID 05/29/15 02/24/21 100-50 Diskus] Levothyroxine Sodium [Synthroid] 112 mcg PO DAILY 02/11/17 02/24/21 Albuterol 2.5 mg INH Q4H PRN #30 neb 11/15/17 02/24/21 Atorvastatin [Lipitor] 10 mg PO DAILY 02/24/21 02/24/21 - Allergies Allergies/Adverse Reactions: Allergies Allergy/AdvReac Type Severity Reaction Status Date / Time Fish Containing Products Allergy Mild Edema Verified 02/24/21 04:44 benzonatate Allergy Respiratory Verified 02/24/21 03:19 [From Trupti Sandoval] codeine AdvReac Intermediate Nausea/Vomi Verified 02/24/21 03:19 tting/Itchi ng Latex, Natural Rubber AdvReac Intermediate Itching Verified 02/24/21 03:19 povidone-iodine AdvReac Intermediate Itching Verified 02/24/21 03:19 [From Betadine] soap * [From Betadine] AdvReac Intermediate Itching Verified 02/24/21 03:19 Sulfa (Sulfonamide AdvReac Unknown Unknown Verified 02/24/21 03:19 Antibiotics) - Social History Does the pt smoke?: No Smoking Status: Never smoker Does the pt drink ETOH?: No Does the pt have substance abuse?: No - Immunizations Immunizations are current?: Yes - POLST Patient has POLST: No PD ED PE NORMAL - Vitals Vital signs reviewed: Yes - General General: Alert and oriented X 3, No acute distress, Well developed/nourished - HEENT HEENT: Pharynx benign - Neck Neck: Supple, no meningeal sign, No adenopathy - Cardiac Cardiac: RRR, No murmur - Respiratory Respiratory: Clear bilaterally, Other (some chestwall tenderness left pectoral area. No rash nor sores. ) - Abdomen Abdomen: Soft, Non tender - Derm Derm: Normal color, Warm and dry - Extremities Extremities: No tenderness to palpate, Normal ROM s pain, No edema, No calf tenderness / cord - Neuro Neuro: Alert and oriented X 3, No motor deficit, Normal speech Results - Vitals Vitals: Vital Signs - 24 hr 02/24/21 02/24/21 02/24/21 03:16 03:32 04:38 Temperature 36.1 C L Heart Rate 81 66 65 Respiratory 17 15 14 Rate Blood Pressure 103/59 L 100/67 90/70 O2 Saturation 97 100 96 02/24/21 02/24/21 05:19 06:08 Temperature 36.5 C Heart Rate 64 64 Respiratory 16 16 Rate Blood Pressure 90/57 L 90/57 L O2 Saturation 96 96 Oxygen O2 Source Room air - EKG (time done) 03:18 Rate: Rate (enter#) (67) Rhythm: NSR [place]: Normal Intervals: Normal ID QRS: Normal Ischemia: Normal ST segments. No: ST elevation c/w ischemia, ST depression Computer interpretation: Disagree with computer (baseline artifact read as atrial fib but is not. ) - Labs Labs: Laboratory Tests 02/24/21 02/24/21 02/24/21 04:08 04:08 04:08 WBC 6.2 RBC 4.24 Hgb 12.4 Hct 38.6 MCV 91.0 MCH 29.2 MCHC 32.1 RDW 13.6 Plt Count 299 MPV 10.1 Neut # (Auto) 2.7 Lymph # (Auto) 2.5 Sharp # (Auto) 0.6 Eos # (Auto) 0.3 Baso # (Auto) 0.1 Absolute Nucleated RBC 0.00 Nucleated RBC % 0.0 Sodium 139 Potassium 4.0 Chloride 109 Carbon Dioxide 23 Anion Gap 7.0 BUN 18 Creatinine 0.6 Estimated GFR (MDRD) 105 Glucose 104 H Calcium 9.2 Total Bilirubin 0.6 AST 21 ALT 20 Alkaline Phosphatase 69 Troponin I High Sens 2.7 Total Protein 6.6 L Albumin 3.9 Globulin 2.7 Albumin/Globulin Ratio 1.4 Lipase 23 02/24/21 05:00 WBC RBC Hgb Hct MCV MCH MCHC RDW Plt Count MPV Neut # (Auto) Lymph # (Auto) Sharp # (Auto) Eos # (Auto) Baso # (Auto) Absolute Nucleated RBC Nucleated RBC % Sodium Potassium Chloride Carbon Dioxide Anion Gap BUN Creatinine Estimated GFR (MDRD) Glucose Calcium Total Bilirubin AST ALT Alkaline Phosphatase Troponin I High Sens 2.7 Total Protein Albumin Globulin Albumin/Globulin Ratio Lipase - Rads (name of study) chest xray Radiology: Prelim report reviewed (no acute process), See rad report PD MEDICAL DECISION MAKING - ED course Complexity details: considered differential (seems pectoral muscle. Normal testing. ), d/w patient Departure - Departure Disposition: 01 Home, Self Care Clinical Impression: Chest pain Qualifiers: Chest pain type: precordial pain Qualified Code(s): R07.2 - Precordial pain Condition: Stable Record reviewed to determine appropriate education?: Yes Instructions: ED Chest Pain Atypical Unkn Cause Comments: Your EKG, chest x-ray, blood tests are normal. No signs of more significant cause to your pain. As the character sounding muscular. I would treat it with some ibuprofen or naproxen 2-3 times a day and add Tylenol if needed for pains. Recheck if worsening symptoms or you develop new symptoms associated such as rash or fever etc. Otherwise I would anticipate improving over the next 2 to 3 days. Discharge Date/Time: 02/24/21 06:13
[2021-02-24] MEDS ORDERED: KETOROLAC 30 MG/ML VIAL IVP STA (03:55)
[2021-02-24 04:35] LABS: BASOPHILS # (AUTO) 0.1 10^3/uL (0.0-0.1); BASOPHILS % (AUTO) 1.9 %; EOSINOPHILS # (AUTO) 0.3 10^3/uL (0.0-0.7); EOSINOPHILS % (AUTO) 4.4 %; HCT - HEMATOCRIT 38.6 % (37.0-47.0); HGB - HEMOGLOBIN 12.4 g/dL (12.0-16.0); LYMPHOCYTES # (AUTO) 2.5 10^3/uL (1.5-3.5); LYMPHOCYTES % (AUTO) 40.5 %; MEAN CORPUSCULAR HEMOGLOBIN 29.2 pg (27.0-31.0); MEAN CORPUSCULAR HGB CONC 32.1 g/dL (32.0-36.0); MEAN PLATELET VOLUME 10.1 fL (7.9-10.8); MONOCYTES # (AUTO) 0.6 10^3/uL (0.0-1.0); MONOCYTES % (AUTO) 8.9 %; NEUTROPHILS # (AUTO) 2.7 10^3/uL (1.5-6.6); NEUTROPHILS % (AUTO) 44.1 %; PLT - PLATELET COUNT 299 10^3/uL (130-450); RED BLOOD COUNT 4.24 10^6/uL (4.20-5.40); RED CELL DISTRIBUTION WIDTH 13.6 % (12.0-15.0); WHITE BLOOD COUNT 6.2 x10^3/uL (4.8-10.8)
[2021-02-24 04:55] LABS: ALBUMIN 3.9 g/dL (3.2-5.5); ALBUMIN/GLOBULIN RATIO 1.4 (1.0-2.2); BILIRUBIN,TOTAL 0.6 mg/dL (0.2-1.0); CALCIUM 9.2 mg/dL (8.5-10.3); CREATININE 0.6 mg/dL (0.4-1.0); TOTAL PROTEIN 6.6 g/dL (6.7-8.2)
[2021-02-24 05:20] VITALS: BP 90/57
--- NOTE | 2021-02-24 08:26 | XRAY Report ---
PROCEDURE: Chest 1 View X-Ray INDICATIONS: Chest Pain TECHNIQUE: One view of the chest was acquired. COMPARISON: 11/18/2017 FINDINGS: Surgical changes and devices: None. Lungs and pleura: No pleural effusions or pneumothorax. Lungs are clear. Mediastinum: Mediastinal contours appear normal. Heart size is top normal Bones and chest wall: No suspicious bony lesions. Overlying soft tissues appear unremarkable. IMPRESSION: .Normal heart size. No evidence acute pulmonary process. A preliminary report with the above findings was provided at the time of the study by [facility]. Reviewed by: Jim Acuna MD on 02/24/2021 7:25 AM KATE Approved by: Jim Acuna MD on 02/24/2021 7:25 AM KATE Station ID: [id number]
== END 2021-02-24 06:13 | disposition home or self-care (01) ==
LOC: ED 03:08
DX: R07.2 Precordial pain (principal)
CPT/HCPCS: 36415; 80053; 83690; 84484; 85025; 93005; 96374; 99284

== ENCOUNTER 2021-04-11 08:00 | Outpatient (CLI) | payer OTHER ==
[2021-04-11 17:53] LABS: BASOPHILS # (AUTO) 0.1 10^3/uL (0.0-0.1); BASOPHILS % (AUTO) 1.3 %; EOSINOPHILS # (AUTO) 0.3 10^3/uL (0.0-0.7); EOSINOPHILS % (AUTO) 3.6 %; HCT - HEMATOCRIT 40.5 % (37.0-47.0); HGB - HEMOGLOBIN 12.6 g/dL (12.0-16.0); LYMPHOCYTES # (AUTO) 2.2 10^3/uL (1.5-3.5); LYMPHOCYTES % (AUTO) 29.7 %; MEAN CORPUSCULAR HEMOGLOBIN 29.1 pg (27.0-31.0); MEAN CORPUSCULAR HGB CONC 31.1 g/dL (32.0-36.0); MEAN CORPUSCULAR VOLUME 93.5 fL (81.0-99.0); MEAN PLATELET VOLUME 10.6 fL (7.9-10.8); MONOCYTES # (AUTO) 0.4 10^3/uL (0.0-1.0); MONOCYTES % (AUTO) 5.2 %; NEUTROPHILS # (AUTO) 4.5 10^3/uL (1.5-6.6); NEUTROPHILS % (AUTO) 59.9 %; PLT - PLATELET COUNT 308 10^3/uL (130-450); RED BLOOD COUNT 4.33 10^6/uL (4.20-5.40); RED CELL DISTRIBUTION WIDTH 14.4 % (12.0-15.0); WHITE BLOOD COUNT 7.5 x10^3/uL (4.8-10.8)
[2021-04-11 18:24] LABS: ALBUMIN 4.4 g/dL (3.2-5.5); ALBUMIN/GLOBULIN RATIO 1.6 (1.0-2.2); ALKALINE PHOSPHATASE 96 IU/L (42-121); ALT ALANINE AMINOTRANSFERASE 37 IU/L (10-60); AST ASPARTATE AMINOTRANSFERASE 28 IU/L (10-42); BILIRUBIN,TOTAL 0.7 mg/dL (0.2-1.0); BUN - BLOOD UREA NITROGEN 10 mg/dL (6-20); CALCIUM 9.7 mg/dL (8.5-10.3); CARBON DIOXIDE - CO2 27 mmol/L (21-32); CHLORIDE 106 mmol/L (101-111); CHOL/HDL RATIO 4.2 (<4.4); CHOLESTEROL 250 mg/dL; CREATININE 0.7 mg/dL (0.4-1.0); GFR - MDRD 87 (>89); GLUCOSE 96 mg/dL (70-100); HDL CHOLESTEROL 60 mg/dL; LDL CHOLESTEROL,CALCULATED 177 mg/dL; POTASSIUM 4.6 mmol/L (3.5-5.0); SODIUM 142 mmol/L (135-145); TOTAL PROTEIN 7.1 g/dL (6.7-8.2); TRIGLYCERIDES 67 mg/dL; VLDL CHOLESTEROL 13 mg/dL
[2021-04-11 18:31] LABS: THYROID STIMULATING HORMONE 1.27 uIU/mL (0.34-5.60)
[2021-04-11 20:56] LABS: ESTIMATED AVERAGE GLUCOSE 114 mg/dL (70-100); HEMOGLOBIN A1c% 5.6 % (4.27-6.07)
== END 2021-04-11 23:59 | disposition home or self-care (01) ==
LOC: LAB.WCP 08:00
PROVIDERS: ATTEND Family Medicine
DX: N39.0 Urinary tract infection, site not specified (principal); R73.9 Hyperglycemia, unspecified; K21.9 Gastro-esophageal reflux disease without esophagitis; E55.9 Vitamin D deficiency, unspecified; G47.33 Obstructive sleep apnea (adult) (pediatric); Z20.822 Contact with and (suspected) exposure to COVID-19
CPT/HCPCS: 36415; 80053; 80061; 83036; 83721; 84443; 85025; 87077; 87086; 87181

== ENCOUNTER 2021-06-21 08:26 | Outpatient (CLI) | payer OTHER ==
[2021-06-21 10:25] LABS: THYROID STIMULATING HORMONE 4.97 uIU/mL (0.34-5.60)
[2021-06-21 10:27] LABS: FREE T3 3.42 pg/mL (2.5-3.9); FREE T4 (FREE THYROXINE) 0.68 ng/dL (0.58-1.64)
== END 2021-06-21 08:27 | disposition home or self-care (01) ==
LOC: LAB 08:26
PROVIDERS: ATTEND Family Medicine
DX: R55 Syncope and collapse (principal)
CPT/HCPCS: 36415; 82533; 84439; 84443; 84481

== ENCOUNTER 2021-07-19 07:44 | Outpatient (CLI) | payer OTHER ==
--- NOTE | 2021-07-19 09:55 | PROCEDURE REPORT ---
Hospitalist Procedure Note - Procedure Note Procedure Note: 07/19/2021 Service time 8:30 AM Ordering provider: John García MD Indication for test: Lightheadedness and dizziness with nearly passing out Significant medical history: this glory lady reports that she has had symptoms of near syncope or lightheadedness for decades. If she sits up too quickly, she will have to wait 5 to 10 seconds to get her vertigo under control and then she can stand. She is able to walk her dogs for 10 minutes every day. She says exercise makes her feel better. She has no chest pain, diaphoresis, nausea, arm pain, palpit ations. Other than walking her dogs, she is relatively sedentary. Asthma can be a problem if she exercises too hard and carries an inhaler with her. As such she doesn't exercise. 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 When her lightheadedness was starting to get more a more frequent, she obtained a blood pressure monitor. The blood pressure monitor told her that her blood pressure was too low. She went to go see her primary care provider who then referred her for stress test as part of her evaluation. Cardiac risk factors: Hyperlipidemia. She takes a statin. Other than that, she does not smoke, does not have diabetes, has a negative family history, and has no hypertension. In her family, her mother and mother side of the family all have a history of "low blood pressure". Mom does have a history of arrhythmia but she does not know what type. Type of stress test: ETT with echocardiograph Procedure: Exercise treadmill After signing informed consent, the patient underwent resting echo imaging and then performed treadmill exercising using Joel protocol. The patient exercised for 6 minutes and 1 second. She achieved a peak heart rate of 179 (which was greater than 100% of her maximum heart rate for her age group), and an estimated workload of 7.05 METS. The test was terminated due to leg weakness and shortness of breath. No wheezing was ausculated. Rhythm during exercise: Sinus without isolated premature atrial complexes or premature ventricular complexes. Symptoms: Patient developed shortness of breath in stage I of Joel protocol but was able to continue into stage III. Discomfort consisted of shortness of breath, and discomfort with her face mask. In recovery, the symptoms/shortness of breath rapidly abated within 1 minute. EKG at rest showed normal sinus rhythm, inverted T wave in V2. Slight RSR prime in V1 and V2. Otherwise normal. Blood pressure at rest was 92/71 with a heart rate of 57. EKG at peak stress showed no diagnostic criteria for ischemia. In recovery, although shortness of breath resolved and did not require her inhaler, heart rate and blood pressure did not return to normal till after 4 minutes. At 4 minutes pulse was <100 and blood pressure was 102/63. Maximum blood pressure during stress was 145/68. Heart rate 179. Echo imaging performed at rest and with stress to be interpreted by Cardiology. ILaurel MD, was present throughout this treadmill stress study and supervised it in its entirety. Summary: 1. Exercise tolerance mildly reduced. 2. Normal resting EKG 3. Adequate level of exercise was achieved on the treadmill test 4. Normal blood pressure response to exercise 5. No ischemic changes by EKG criteria. 6. Echo image interpretation is done under separate dictation by cardiology. Conclusions: Normal Joel protocol stress test.
== END 2021-07-19 07:45 | disposition home or self-care (01) ==
LOC: DI 07:44
PROVIDERS: ATTEND Family Medicine
DX: R55 Syncope and collapse (principal); J45.909 Unspecified asthma, uncomplicated; E78.5 Hyperlipidemia, unspecified
CPT/HCPCS: 93350

== ENCOUNTER 2021-08-20 08:00 | Outpatient (CLI) | payer OTHER | END 2021-08-20 23:59 | LOC: LAB.N 08:00 | PROVIDERS: ATTEND Family Medicine | DX: R30.0 Dysuria (principal) | CPT/HCPCS: 87086; 87181 ==

== ENCOUNTER 2021-10-04 08:00 | Outpatient (CLI) | payer OTHER ==
[2021-10-04 12:35] LABS: BASOPHILS # (AUTO) 0.1 10^3/uL (0.0-0.1); BASOPHILS % (AUTO) 1.3 %; EOSINOPHILS # (AUTO) 0.3 10^3/uL (0.0-0.7); HCT - HEMATOCRIT 39.1 % (37.0-47.0); HGB - HEMOGLOBIN 12.5 g/dL (12.0-16.0); LYMPHOCYTES # (AUTO) 2.8 10^3/uL (1.5-3.5); LYMPHOCYTES % (AUTO) 36.1 %; MEAN CORPUSCULAR HEMOGLOBIN 29.3 pg (27.0-31.0); MEAN CORPUSCULAR VOLUME 91.6 fL (81.0-99.0); MEAN PLATELET VOLUME 10.4 fL (7.9-10.8); MONOCYTES # (AUTO) 0.5 10^3/uL (0.0-1.0); MONOCYTES % (AUTO) 6.8 %; NEUTROPHILS % (AUTO) 51.7 %; PLT - PLATELET COUNT 330 10^3/uL (130-450); RED BLOOD COUNT 4.27 10^6/uL (4.20-5.40); RED CELL DISTRIBUTION WIDTH 13.8 % (12.0-15.0); WHITE BLOOD COUNT 7.7 x10^3/uL (4.8-10.8)
[2021-10-04 12:41] LABS: ALBUMIN 4.2 g/dL (3.2-5.5); ALBUMIN/GLOBULIN RATIO 1.6 (1.0-2.2); BILIRUBIN,TOTAL 0.6 mg/dL (0.2-1.0); CALCIUM 9.4 mg/dL (8.5-10.3); CREATININE 0.8 mg/dL (0.4-1.0); POTASSIUM 3.8 mmol/L (3.5-5.0); TOTAL PROTEIN 6.8 g/dL (6.7-8.2)
== END 2021-10-04 23:59 ==
LOC: LAB.N 08:00
PROVIDERS: ATTEND Physician Assistant
DX: R10.9 Unspecified abdominal pain (principal)
CPT/HCPCS: 36415; 80053; 83690; 85025; 87086; 87181

== ENCOUNTER 2021-11-14 15:22 | Outpatient (CLI) | payer OTHER ==
--- NOTE | 2021-11-14 16:23 | Ultrasound Report ---
PROCEDURE: Retroperitoneal INDICATIONS: HISTORY OF UTI TECHNIQUE: Real-time scanning was performed of the retroperitoneal organs, with image documentation. COMPARISON: None. FINDINGS: Kidneys: Kidneys are normal in size. Right kidney measures 10.2 cm long; left kidney measures 10 po int cm long. Right renal cortical thickness is 1.6 cm; left renal cortical thickness is 1.3 cm. No solid masses, hydronephrosis, or nephrolithiasis. Prevoid urinary bladder volume is 104 cc. Postvoid residual is 4 cc. Bilateral ureteral jets are pres ent. IMPRESSION: Negative examination. Reviewed by: Armando Russell MD on 11/14/2021 4:21 PM PDT Approved by: Armando Russell MD on 11/14/2021 4:21 PM PDT Station ID: [id number]
== END 2021-11-14 15:23 | disposition home or self-care (01) ==
LOC: DI 15:22
PROVIDERS: ATTEND Physician Assistant Medical
DX: R39.9 Unspecified symptoms and signs involving the genitourinary system (principal); Z87.440 Personal history of urinary (tract) infections

== ENCOUNTER 2022-01-16 16:00 | Outpatient (CLI) | payer OTHER ==
[2022-01-16 16:38] VITALS: BP 128/79
--- NOTE | 2022-01-16 16:38 | SLEEP CARE CONSULTATION ---
Information from patient questionnaire entered by Daniel Wilson MA. I have reviewed and concur with the information entered by Daniel Wilson MA. This document represents the service I personally performed and the decisions made by , Macy De Anda ARNP. History of Present Illness Service Date and Time: 01/16/2022 1600 Previous diagnosis: Mild, Obstructive Sleep Apnea-Hypopnea Syndrome AHI: 5.1 Reason for follow up: annual (LAST SEEN 05/2020, GRABIEL, ) Equipment type: CPAP Equipment obtained from: Other ([facility]; have not ordered for a while) Mask style: Nasal Backup mask available: Yes (old mask) Last cushion change: 3-4 months Prior sleep studies: Yes Year and Where: [employer] 2017 [facility] additional information: SHANNAN HUERTA was diagnosed to have mild, AHI 5.1, obstructive sleep apnea-hypopnea syndrome and returned today for CPAP therapy annual follow-up. Sleep Study - Results Prior sleep studies: Yes Year and Where: [facility] 2016 CPAP Compliance Data - Data Reviewed with Patient Average duration of nightly device use: 5 HOURS 17 MINUTES Compliance rate %: 29.4 (180 days) Current pressure setting (cmH2O): 5-10 Humidity settin Heated hose settin Average residual AHI: 1.8 Average large leak: 8 SECONDS Subjective Missed days of use due to: reports: mask issues (oral venting causing noise leaking and will take the mask off), other (recall on device) Patient concerns: reports: other (oral venting). denies: aerophagia, mask discomfort, air blowing in eyes, mask leak noise, condensation in mask/hose, nasal congestion, dry mouth, nose, throat, epistaxis Observed to snore while using device: No Current pressure setting perceived as: comfortable (may need to be a little stronger) On therapy, patient: reports: sleeping better, awakening more refreshed, being more awake and alert during the day, more rested overall. denies: drowsiness while driving Initial Carleton Sleepiness Scale score: 10 Current Carleton Sleepiness Scale score: 8 (12/2021) Allergies and Home Medications Known drug allergies: Yes (SULFAS, CODIENE, LATEX, ) Home medication list reviewed: Yes (oxybutinin for incontinence; omeprazole for hiatal hernia) Allergy and home medication list: Allergies Fish Containing Products Allergy (Mild, Verified 02/24/21 04:44) Edema not all fish. Halibut only. benzonatate [From Tessalon Perles] Allergy (Verified 02/24/21 03:19) Respiratory codeine Adverse Reaction (Intermediate, Verified 02/24/21 03:19) Nausea/Vomitting/Itching Latex, Natural Rubber Adverse Reaction (Intermediate, Verified 02/24/21 03:19) Itching povidone-iodine [From Betadine] Adverse Reaction (Intermediate, Verified 02/24/21 03:19) Itching soap * [From Betadine] Adverse Reaction (Intermediate, Verified 02/24/21 03:19) Itching Sulfa (Sulfonamide Antibiotics) Adverse Reaction (Unknown, Verified 02/24/21 03:19) Unknown Review of Systems Review of systems same as previous: No (cardiology eval-low BP and heartbeat; freq UTI/incontinence) Physical Exam Vital signs obtained and entered by: LAVELLE MCHUGH Blood Pressure: 128/79 (RESP 16, PULSE 72, LEFT,) Heart Rate: 75 O2 Saturation: 96 (PAPER MASK) Height: 5 ft 3 in Weight: 195 lb (W/O CLOTHES) Weight change since last visit: 5 lb loss Body Mass Index: 34.5 BMI Classification: Obese Impression and Plan 1. Obstructive Sleep Apnea-Hypopnea Syndrome, mild, with poor treatment compliance and good apnea control. On CPAP therapy, the patient has better sleep quality and is more rested overall. Patient has a DreamStation that is on the recall. Patient was encouraged to register their device online with [employer] for the recall to see if their device is affected. If their device is affected they should start a claim. Patient denies any black particles seen in machine or hoses, any unusual odors coming from device. Patient has not experienced any physical symptoms such as upper airway irritation, headache, skin or eye irritation, asthma, nausea/vomiting, difficulty breathing or chest pain. If patient is not able to sleep due to waking up choking, gasping for air or other respiratory distress that they may decide to continue using it until it is either replaced or repaired. Patient is in normal range on their side and may practice positional therapy by staying off their back to control apnea to control apnea until her machine is replaced. I advised patient that she could purchase a portable CPAP machine to use until they replace or repair her old DreamStation. She thought this was a good idea and I wrote a prescription for her to be able to obtain a portable CPAP machine. She knows that this is something she will have to pay for out of her own pocket. I will also update a prescription for supplies. Patient states she also has not been using her CPAP because she has been oral venting. I advised her to try to use a chinstrap and this will help to keep her mouth closed and reduce that oral venting. Patient voiced understanding and agreement with plan. Patient's apnea severity and rationale for treatment to reduce apnea, improve sleep quality and reduce card iovascular and cerebrovascular events was reviewed. I also reviewed the benefit of consistent device use of CPAP for asthma, depression and anxiety. Patient was encouraged to continue to try lose weight. She states she has been trying to lose weight and has been losing weight since she started using the CPAP machine. * Continue auto CPAP pressure at 5-10 cmH2O * Use a chin strap to reduce oral venting * Prescription for portable CPAP * Notify me if snoring with mask or feeling that the pressure is too much or too little * Continue to try to lose weight * Call this office if any problems using CPAP * Return for follow up one month after obtaining new portable device, or sooner if concerns arise Counseling Topics: Sleeping position, Spare mask, Weight loss health impact Visit Type: In Office Time Spent with Patient (minutes): 24 Provider Statement: I spent 100% of the Face to Face Visit with the patient with greater than 50% spent counseling the patient and coordination of care.
== END 2022-01-16 16:01 | disposition home or self-care (01) ==
LOC: SC 16:00
PROVIDERS: ATTEND Nurse Practitioner Family
DX: G47.33 Obstructive sleep apnea (adult) (pediatric) (principal); E66.9 Obesity, unspecified; Z68.34 Body mass index [BMI] 34.0-34.9, adult
CPT/HCPCS: 99212; 99213

== ENCOUNTER 2022-01-31 09:39 | Outpatient (CLI) | payer OTHER ==
--- NOTE | 2022-02-01 07:54 | Mammography Report ---
BILATERAL DIGITAL SCREENING MAMMOGRAM 3D/2D: 01/31/2022 CLINICAL: Routine screening. Comparison is made to exams dated: 11/09/2020 ultrasound, 11/09/2020 mammogram, 10/22/2019 mammogram, a nd 02/24/2018 mammogram - [facility]. There are scattered fibroglandular elements i n both breasts. No significant masses, calcifications, or other findings are seen in either breast. There has been no significant interval change. IMPRESSION: NEGATIVE There is no mammographic evidence of malignancy. A 1 year screening mammogram is recommended. This exam was interpreted at Station ID: [id number]. NOTE: For mammograms, a report in lay terms will be sent to the patient. Approximately 15% of breast malignancies will not be visualized mammographically. In the management of a palpable breast mass, a negative mammogram must not discourage biopsy of a clinically suspicious lesion. Electronically Signed By: Carlos Angulo M.D. ar/penrad:01/31/2022 11:18:38 ACR BI-RADS Category 1: Negative 3341F PARENCHYMAL PATTERN: (A) - The breast(s) demonstrate(s) scattered fibroglandular densities. BI-RADS CATEGORY: (1) - 1 RECOMMENDATION: (ANNUAL) - Recommend routine annual screening mammography. [id number] 1 year screening LATERALITY: (B)
== END 2022-01-31 09:40 | disposition home or self-care (01) ==
LOC: DI.N 09:39
PROVIDERS: ATTEND Family Medicine
DX: Z12.31 Encounter for screening mammogram for malignant neoplasm of breast (principal)

== ENCOUNTER 2022-02-14 10:24 | Outpatient (CLI) | payer OTHER ==
[2022-02-14 10:39] LABS: BILIRUBIN,URINE NEGATIVE (NEGATIVE); GLUCOSE, URINE (UA) NEGATIVE (NEGATIVE); KETONES,URINE (UA) TRACE mg/dL (NEGATIVE); LEUKOCYTE ESTERASE, URINE TRACE (NEGATIVE); NITRITE,URINE NEGATIVE (NEGATIVE); OCCULT BLOOD,URINE TRACE-INTA (NEGATIVE); PROTEIN,URINE NEGATIVE (NEGATIVE); UROBILINOGEN,URINE 0.2 (NORMAL) E.U./dL (NORMAL)
[2022-02-14 10:49] LABS: BACTERIA,URINE Rare /HPF (None Seen); CLARITY,URINE CLEAR (CLEAR); RBC,URINE 0-5 /HPF (0-5); SQUAMOUS EPITHELIAL CELL,UR NONE SEEN (<= Few)
== END 2022-02-14 10:25 | disposition home or self-care (01) ==
LOC: LAB 10:24
DX: R39.9 Unspecified symptoms and signs involving the genitourinary system (principal)
CPT/HCPCS: 81001; 87086; 87181

== ENCOUNTER 2022-03-02 19:17 | Emergency (ER) | payer OTHER ==
--- NOTE | 2022-03-02 20:01 | XRAY Report ---
PROCEDURE: Chest 1 View X-Ray INDICATIONS: Chest pain TECHNIQUE: One view of the chest was acquired. COMPARISON: 02/24/2021 FINDINGS: Surgical changes and devices: None. Lungs and pleura: No pleural effusions or pneumothorax. Lungs are clear. Mediastinum: Mediastinal contours appear normal. Heart size is normal. Bones and chest wall: No suspicious bony lesions. Overlying soft tissues appear unremarkable. IMPRESSION: No acute cardiopulmonary pathology. Reviewed by: Cirilo Oakley MD on 03/02/2022 8:00 PM PDT Approved by: Cirilo Oakley MD on 03/02/2022 8:00 PM PDT Station ID: [id number]
[2022-03-02 21:09] LABS: BASOPHILS # (AUTO) 0.1 10^3/uL (0.0-0.1); BASOPHILS % (AUTO) 1.1 %; EOSINOPHILS # (AUTO) 0.3 10^3/uL (0.0-0.7); EOSINOPHILS % (AUTO) 3.3 %; HCT - HEMATOCRIT 37.8 % (37.0-47.0); HGB - HEMOGLOBIN 12.4 g/dL (12.0-16.0); LYMPHOCYTES # (AUTO) 2.7 10^3/uL (1.5-3.5); LYMPHOCYTES % (AUTO) 26.7 %; MEAN CORPUSCULAR HEMOGLOBIN 29.5 pg (27.0-31.0); MEAN CORPUSCULAR HGB CONC 32.8 g/dL (32.0-36.0); MEAN CORPUSCULAR VOLUME 89.8 fL (81.0-99.0); MEAN PLATELET VOLUME 9.9 fL (7.9-10.8); MONOCYTES # (AUTO) 0.8 10^3/uL (0.0-1.0); MONOCYTES % (AUTO) 7.4 %; NEUTROPHILS # (AUTO) 6.2 10^3/uL (1.5-6.6); NEUTROPHILS % (AUTO) 61.3 %; PLT - PLATELET COUNT 312 10^3/uL (130-450); RED BLOOD COUNT 4.21 10^6/uL (4.20-5.40); RED CELL DISTRIBUTION WIDTH 13.6 % (12.0-15.0); WHITE BLOOD COUNT 10.1 x10^3/uL (4.8-10.8)
[2022-03-02 21:24] LABS: ALBUMIN 4.3 g/dL (3.2-5.5); ALBUMIN/GLOBULIN RATIO 1.4 (1.0-2.2); ALKALINE PHOSPHATASE 74 IU/L (42-121); ALT ALANINE AMINOTRANSFERASE 17 IU/L (10-60); AST ASPARTATE AMINOTRANSFERASE 16 IU/L (10-42); BILIRUBIN,TOTAL < 0.2 mg/dL (0.2-1.0); BUN - BLOOD UREA NITROGEN 26 mg/dL (6-20); CALCIUM 9.5 mg/dL (8.5-10.3); CARBON DIOXIDE - CO2 25 mmol/L (21-32); CHLORIDE 107 mmol/L (101-111); CREATININE 0.8 mg/dL (0.4-1.0); GFR - MDRD 75 (>89); GLUCOSE 97 mg/dL (70-100); LIPASE 29 U/L (22-51); POTASSIUM 4.1 mmol/L (3.5-5.0); SODIUM 140 mmol/L (135-145); TOTAL PROTEIN 7.3 g/dL (6.7-8.2)
--- NOTE | 2022-03-02 22:36 | ED Physician Documentation ---
PD HPI CHEST PAIN - Stated complaint Stated Complaint: CP, NECK, HEAD LT SIDE PX - Chief complaint Chief Complaint: Cardiac - History obtained from History obtained from: Patient - Additional information Additional information: Patient is a 56-year-old female with a history of hypothyroidism and hyperlipidemia presenting for evaluation of left-sided chest pain that has been present since 4:00 this morning. Pain woke her up from her sleep. It has been dull throughout the day but at times becomes sharp. She actually feels that she does not notice it as much when she is moving around or walking and has been feeling it more if she sits down. Pain does radiate to the neck and left shoulder region.She denies any difficulty breathing. She does not feel dizzy or lightheaded. No associated nausea or vomiting or diaphoresis. She denies previous cardiac history. She takes medications for her cholesterol but is not diabetic and has no history of hypertension. No family history of early coron jodi artery disease. No recent travel or immobilization. Denies history of PE or DVT. Review of Systems Constitutional: denies: Fever Nose: denies: Congestion Throat: denies: Sore throat Cardiac: reports: Chest pain / pressure Respiratory: denies: Dyspnea, Cough GI: denies: Abdominal Pain, Vomiting : denies: Dysuria Skin: denies: Rash Musculoskeletal: denies: Back pain Neurologic: denies: Headache PD PAST MEDICAL HISTORY - Past Medical History Cardiovascular: High cholesterol, Other Respiratory: Asthma, Pneumonia, Shortness of breath Endocrine/Autoimmune: HyPOthyroidism, Other GI: None : Incontinence, Frequency HEENT: Other Psych: Depression Musculoskeletal: Osteoarthritis, Chronic back pain Derm: Eczema - Past Surgical History Past Surgical History: Yes General: Appendectomy Ortho: ACL reconstruction, 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, Other HEENT: Tonsil/Adenoidectomy - Present Medications Home Medications: Ambulatory Orders Medication Instructions Recorded Confirmed Fluticasone [Flonase] 2 sprays BERNARDO DAILY 05/29/15 02/24/21 Fluticasone/Salmeterol [Advair 1 inh INH BID 05/29/15 02/24/21 100-50 Diskus] Levothyroxine Sodium [Synthroid] 112 mcg PO DAILY 02/11/17 02/24/21 Albuterol 2.5 mg INH Q4H PRN #30 neb 11/15/17 02/24/21 Atorvastatin [Lipitor] 10 mg PO DAILY 02/24/21 02/24/21 - Allergies Allergies/Adverse Reactions: Allergies Allergy/AdvReac Type Severity Reaction Status Date / Time Fish Containing Products Allergy Mild Edema Verified 03/02/22 19:31 benzonatate Allergy Respiratory Verified 03/02/22 19:31 [From Tessalon Perles] codeine AdvReac Intermediate Nausea/Vomi Verified 03/02/22 19:31 tting/Itchi ng Latex, Natural Rubber AdvReac Intermediate Itching Verified 03/02/22 19:31 povidone-iodine AdvReac Intermediate Itching Verified 03/02/22 19:31 [From Betadine] soap * [From Betadine] AdvReac Intermediate Itching Verified 03/02/22 19:31 Sulfa (Sulfonamide AdvReac Unknown Unknown Verified 03/02/22 19:31 Antibiotics) - Social History Does the pt smoke?: No Smoking Status: Never smoker Does the pt drink ETOH?: No Does the pt have substance abuse?: No - Immunizations Immunizations are current?: Yes - POLST Patient has POLST: No PD ED PE NORMAL - General General: Alert and oriented X 3, No acute distress, Well developed/nourished - HEENT HEENT: Atraumatic, Moist mucous membranes, Pharynx benign - Neck Neck: Supple, no meningeal sign, No bony TTP - Cardiac Cardiac: RRR, No murmur, Strong equal pulses, Other (Left-sided chest wall tenderness to palpation, no rash) - Respiratory Respiratory: No respiratory distress, Clear bilaterally - Abdomen Abdomen: Normal bowel sounds, Soft, Non tender, Non distended - Back Back: No spinal TTP - Derm Derm: Warm and dry - Extremities Extremities: No edema, No calf tenderness / cord - Neuro Neuro: Normal speech Results - Vitals Vitals: Vital Signs - 24 hr 03/02/22 03/02/22 03/02/22 19:26 19:31 21:31 Temperature 36.1 C L Heart Rate 83 73 72 Respiratory 16 16 16 Rate Blood Pressure 96/59 L 101/62 101/62 O2 Saturation 98 100 100 03/02/22 22:57 Temperature 36.1 C L Heart Rate 72 Respiratory 16 Rate Blood Pressure 101/62 O2 Saturation 100 Oxygen O2 Source Room air - EKG (time done) 1925 Rate: Rate (enter#) (73) Rhythm: NSR [place]: Normal Ischemia: No: ST elevation c/w ischemia, ST depression - Labs Labs: Laboratory Tests 03/02/22 03/02/22 03/02/22 21:04 21:04 21:04 WBC 10.1 RBC 4.21 Hgb 12.4 Hct 37.8 MCV 89.8 MCH 29.5 MCHC 32.8 RDW 13.6 Plt Count 312 MPV 9.9 Neut # (Auto) 6.2 Lymph # (Auto) 2.7 [place] # (Auto) 0.8 Eos # (Auto) 0.3 Baso # (Auto) 0.1 Absolute Nucleated RBC 0.00 Nucleated RBC % 0.0 Sodium 140 Potassium 4.1 Chloride 107 Carbon Dioxide 25 Anion Gap 8.0 BUN 26 H Creatinine 0.8 Estimated GFR (MDRD) 75 L Glucose 97 Calcium 9.5 Total Bilirubin < 0.2 L AST 16 ALT 17 Alkaline Phosphatase 74 Troponin I High Sens 2.4 Total Protein 7.3 Albumin 4.3 Globulin 3.0 Albumin/Globulin Ratio 1.4 Lipase 29 PD MEDICAL DECISION MAKING - ED course Complexity details: reviewed results, re-evaluated patient, d/w patient ED course: Patient presenting for chest pain that has been present since this morning. EKG is reassuring without signs of acute ischemia. High-sensitivity troponin is also negative. Should not has a normal neurologic exam and I do not feel her symptoms suggest a dissection.She also has no risk factors for a pulmonary embolism. Patient's pain is reproducible. She did feel that she may be had slept wrong last night.Advised on trial of anti-inflammatory medication and close follow-up with primary care doctor. She is aware of strict return precautions. Departure - Departure Disposition: 01 Home, Self Care Clinical Impression: Chest pain Qualifiers: Chest pain type: unspecified Qualified Code(s): R07.9 - Chest pain, unspecified Condition: Stable Instructions: ED Chest Pain Atypical Unkn Cause Follow-Up: John García MD [Primary Care Provider] - Comments: You were evaluated for chest pain. Your EKG and cardiac testing did not show any abnormalities. At this time it does not appear that you are having a heart attack but sometimes you need further testing to evaluate the cause of your pain. You did have some reproducible tenderness on your exam so the pain could be muscle related. Please use anti-inflammatory medications like acetaminophen or ibuprofen to see if this helps. I would still encourage you to have close follow-up with your primary care doctor in the next several days to see if you need any further testing like a stress test as an outpatient. If you have any worsening symptoms such as trouble breathing, pain in a new area or worsening pain or any symptoms that concern you please return to the emergency department. Discharge Date/Time: 03/02/22 22:57
[2022-03-02] MEDS: LIDOCAINE PATCH 5% TOP STA (22:40)
[2022-03-02 22:44] VITALS: BP 101/62
== END 2022-03-02 22:57 | disposition home or self-care (01) ==
LOC: ED 19:17
DX: R07.9 Chest pain, unspecified (principal)
CPT/HCPCS: 36415; 71045; 80053; 83690; 84484; 85025; 93005; 99284; A9270

== ENCOUNTER 2022-05-30 08:36 | Outpatient (CLI) | payer OTHER ==
[2022-05-30 09:13] LABS: BASOPHILS # (AUTO) 0.1 10^3/uL (0.0-0.1); BASOPHILS % (AUTO) 1.4 %; EOSINOPHILS # (AUTO) 0.5 10^3/uL (0.0-0.7); EOSINOPHILS % (AUTO) 7.5 %; HCT - HEMATOCRIT 41.8 % (37.0-47.0); HGB - HEMOGLOBIN 13.5 g/dL (12.0-16.0); LYMPHOCYTES # (AUTO) 3.2 10^3/uL (1.5-3.5); LYMPHOCYTES % (AUTO) 48.2 %; MEAN CORPUSCULAR HEMOGLOBIN 29.2 pg (27.0-31.0); MEAN CORPUSCULAR HGB CONC 32.3 g/dL (32.0-36.0); MEAN CORPUSCULAR VOLUME 90.3 fL (81.0-99.0); MEAN PLATELET VOLUME 9.9 fL (7.9-10.8); MONOCYTES # (AUTO) 0.5 10^3/uL (0.0-1.0); MONOCYTES % (AUTO) 6.9 %; NEUTROPHILS # (AUTO) 2.4 10^3/uL (1.5-6.6); NEUTROPHILS % (AUTO) 35.8 %; PLT - PLATELET COUNT 319 10^3/uL (130-450); RED BLOOD COUNT 4.63 10^6/uL (4.20-5.40); WHITE BLOOD COUNT 6.6 x10^3/uL (4.8-10.8)
[2022-05-30 09:17] LABS: BILIRUBIN,URINE NEGATIVE (NEGATIVE); GLUCOSE, URINE (UA) NEGATIVE (NEGATIVE); KETONES,URINE (UA) NEGATIVE (NEGATIVE); LEUKOCYTE ESTERASE, URINE NEGATIVE (NEGATIVE); NITRITE,URINE POSITIVE (NEGATIVE); OCCULT BLOOD,URINE NEGATIVE (NEGATIVE); PROTEIN,URINE NEGATIVE (NEGATIVE); UROBILINOGEN,URINE 0.2 (NORMAL) E.U./dL (NORMAL)
[2022-05-30 09:25] LABS: BACTERIA,URINE Moderate /HPF (None Seen); CLARITY,URINE CLEAR (CLEAR); MUCUS,URINE Moderate Strands; SQUAMOUS EPITHELIAL CELL,UR FEW Squamous (<= Few)
[2022-05-30 09:29] LABS: ALBUMIN 4.5 g/dL (3.2-5.5); ALBUMIN/GLOBULIN RATIO 1.6 (1.0-2.2); ALKALINE PHOSPHATASE 68 IU/L (42-121); ALT ALANINE AMINOTRANSFERASE 21 IU/L (10-60); AST ASPARTATE AMINOTRANSFERASE 23 IU/L (10-42); BILIRUBIN,TOTAL 0.5 mg/dL (0.2-1.0); BUN - BLOOD UREA NITROGEN 20 mg/dL (6-20); CALCIUM 9.5 mg/dL (8.5-10.3); CARBON DIOXIDE - CO2 27 mmol/L (21-32); CHLORIDE 104 mmol/L (101-111); CHOL/HDL RATIO 4.1 (<4.4); CHOLESTEROL 284 mg/dL; CREATININE 0.8 mg/dL (0.4-1.0); GFR - MDRD 74 (>89); GLUCOSE 101 mg/dL (70-100); HDL CHOLESTEROL 69 mg/dL; LDL CHOLESTEROL,CALCULATED 195 mg/dL; LDL/HDL RATIO 2.8 (<4.4); POTASSIUM 3.7 mmol/L (3.5-5.0); SODIUM 140 mmol/L (135-145); TOTAL PROTEIN 7.3 g/dL (6.7-8.2); TRIGLYCERIDES 100 mg/dL; VLDL CHOLESTEROL 20 mg/dL
[2022-05-30 09:41] LABS: THYROID STIMULATING HORMONE 4.88 uIU/mL (0.34-5.60)
[2022-05-30 12:20] LABS: ESTIMATED AVERAGE GLUCOSE 103 mg/dL (70-100); HEMOGLOBIN A1c% 5.2 % (4.27-6.07)
--- NOTE | 2022-05-30 14:35 | XRAY Report ---
PROCEDURE: Cervical Spine 2 View INDICATIONS: SCOLIOISIS TECHNIQUE: 3 view(s) of the cervical spine were acquired. COMPARISON: None. FINDINGS: Bones: No fractures or dislocations to the C7-T1 level. No suspicious bony lesions. There is trac e anterolisthesis, 2 to 3 mm of C4 on C5. There is severe disc space narrowing at C6-7, moderate to s evere C5-6 with multilevel uncovertebral arthropathy. The odontoid is suboptimally evaluated secondar y to positioning. Soft tissues: No prevertebral soft tissue swelling. IMPRESSION: Multilevel degenerative changes most severe at C5-6 and C6-7. Suboptimal evaluation of the odontoid a s above. If this area remains of concern, repeat views are recommended. Reviewed by: Wendie Vera MD on 05/30/2022 2:33 PM PDT Approved by: Wendie Vera MD on 05/30/2022 2:33 PM PDT Station ID: [id number]
--- NOTE | 2022-05-30 14:36 | XRAY Report ---
PROCEDURE: Thoracic Spine 3 View INDICATIONS: SCOLIOISIS TECHNIQUE: 3 views of the thoracic spine were acquired. COMPARISON: None. FINDINGS: Bones: No fractures or dislocations. No suspicious bony lesions. 12 pairs of ribs are noted, and a ppear intact where visualized. There is rightward curvature within the thoracic spine most notable f rom T6 through T10. Comment milliliters approximately 16 degrees. Soft tissues: No paravertebral stripe thickening. IMPRESSION: Rightward scoliotic curvature as above. Reviewed by: Wendie Vera MD on 05/30/2022 2:35 PM PDT Approved by: Wendie Vera MD on 05/30/2022 2:35 PM PDT Station ID: [id number]
== END 2022-05-30 08:37 | disposition home or self-care (01) ==
LOC: DI 08:36
PROVIDERS: ATTEND Family Medicine
DX: M47.812 Spondylosis without myelopathy or radiculopathy, cervical region (principal); M41.9 Scoliosis, unspecified; E66.9 Obesity, unspecified; R73.9 Hyperglycemia, unspecified; R13.19 Other dysphagia; E55.9 Vitamin D deficiency, unspecified; G47.33 Obstructive sleep apnea (adult) (pediatric); E78.2 Mixed hyperlipidemia; E03.9 Hypothyroidism, unspecified; K21.9 Gastro-esophageal reflux disease without esophagitis
CPT/HCPCS: 36415; 80053; 80061; 81001; 83036; 83721; 84443; 85025; 87077; 87086; 87181

== ENCOUNTER 2022-10-18 08:04 | Outpatient (CLI) | payer OTHER ==
[2022-10-18 08:37] LABS: BILIRUBIN,URINE NEGATIVE (NEGATIVE); GLUCOSE, URINE (UA) NEGATIVE (NEGATIVE); KETONES,URINE (UA) NEGATIVE (NEGATIVE); LEUKOCYTE ESTERASE, URINE MODERATE (NEGATIVE); NITRITE,URINE POSITIVE (NEGATIVE); OCCULT BLOOD,URINE TRACE-INTA (NEGATIVE); PROTEIN,URINE NEGATIVE (NEGATIVE); UROBILINOGEN,URINE 0.2 (NORMAL) E.U./dL (NORMAL)
[2022-10-18 09:33] LABS: BACTERIA,URINE Moderate /HPF (None Seen); CLARITY,URINE SL. CLOUDY (CLEAR); RBC,URINE 0-5 /HPF (0-5); SQUAMOUS EPITHELIAL CELL,UR FEW Squamous (<= Few); WBC,URINE >25 /HPF (0-5)
== END 2022-10-18 08:05 | disposition home or self-care (01) ==
LOC: LAB 08:04
PROVIDERS: ATTEND Physician Assistant Medical
DX: R39.9 Unspecified symptoms and signs involving the genitourinary system (principal)
CPT/HCPCS: 81001; 87086; 87181

== ENCOUNTER 2023-02-05 12:25 | Outpatient (CLI) | payer OTHER ==
[2023-02-05 12:46] LABS: BASOPHILS # (AUTO) 0.1 10^3/uL (0.0-0.1); EOSINOPHILS # (AUTO) 0.3 10^3/uL (0.0-0.7); EOSINOPHILS % (AUTO) 5.3 %; HCT - HEMATOCRIT 40.9 % (37.0-47.0); LYMPHOCYTES # (AUTO) 2.1 10^3/uL (1.5-3.5); LYMPHOCYTES % (AUTO) 35.4 %; MEAN CORPUSCULAR HEMOGLOBIN 28.5 pg (27.0-31.0); MEAN CORPUSCULAR HGB CONC 31.8 g/dL (32.0-36.0); MEAN CORPUSCULAR VOLUME 89.7 fL (81.0-99.0); MONOCYTES # (AUTO) 0.5 10^3/uL (0.0-1.0); MONOCYTES % (AUTO) 8.6 %; NEUTROPHILS % (AUTO) 49.5 %; PLT - PLATELET COUNT 297 10^3/uL (130-450); RED BLOOD COUNT 4.56 10^6/uL (4.20-5.40); RED CELL DISTRIBUTION WIDTH 13.7 % (12.0-15.0)
[2023-02-05 13:03] LABS: ALBUMIN 4.2 g/dL (3.2-5.5); ALBUMIN/GLOBULIN RATIO 1.2 (1.0-2.2); ALKALINE PHOSPHATASE 87 IU/L (42-121); ALT ALANINE AMINOTRANSFERASE 37 IU/L (10-60); AST ASPARTATE AMINOTRANSFERASE 37 IU/L (10-42); BILIRUBIN,TOTAL 0.5 mg/dL (0.2-1.0); BUN - BLOOD UREA NITROGEN 25 mg/dL (6-20); CALCIUM 9.1 mg/dL (8.5-10.3); CARBON DIOXIDE - CO2 26 mmol/L (21-32); CHLORIDE 105 mmol/L (101-111); CHOLESTEROL 251 mg/dL; CREATININE 0.9 mg/dL (0.4-1.0); GFR - MDRD 65 (>89); GLUCOSE 98 mg/dL (70-100); HDL CHOLESTEROL 63 mg/dL; LDL CHOLESTEROL,CALCULATED 172 mg/dL; LDL/HDL RATIO 2.7 (<4.4); POTASSIUM 3.8 mmol/L (3.5-5.0); SODIUM 139 mmol/L (135-145); TOTAL PROTEIN 7.6 g/dL (6.7-8.2); TRIGLYCERIDES 81 mg/dL; VLDL CHOLESTEROL 16 mg/dL
[2023-02-05 13:16] LABS: THYROID STIMULATING HORMONE 1.32 uIU/mL (0.34-5.60)
== END 2023-02-05 12:26 | disposition home or self-care (01) ==
LOC: LAB 12:25
PROVIDERS: ATTEND Family Medicine
DX: E78.2 Mixed hyperlipidemia (principal); K21.9 Gastro-esophageal reflux disease without esophagitis; R13.19 Other dysphagia; G47.33 Obstructive sleep apnea (adult) (pediatric); E66.01 Morbid (severe) obesity due to excess calories; J45.909 Unspecified asthma, uncomplicated; E03.9 Hypothyroidism, unspecified
CPT/HCPCS: 36415; 80053; 80061; 83721; 84443; 85025

== ENCOUNTER 2023-02-06 08:00 | Outpatient (CLI) | payer OTHER | END 2023-02-06 23:59 | disposition home or self-care (01) | LOC: LAB.WCP 08:00 | PROVIDERS: ATTEND Family Medicine | DX: N39.0 Urinary tract infection, site not specified (principal) | CPT/HCPCS: 87086; 87181 ==

== ENCOUNTER 2023-04-19 05:22 | Emergency (ER) | payer OTHER ==
[2023-04-19 05:40] VITALS: BP 99/70; O2SAT 98
--- NOTE | 2023-04-19 06:02 | ED Physician Documentation ---
History of Present Illness - Stated complaint Stated Complaint: C+ - Chief complaint Chief Complaint: General - History obtained from History obtained from: Patient - Additonal information Additional information: 58yF with pmh asthma p/w viral uri sx X 1 day and positive home covid test. patient is requesting repeat test here since her testing kit was . denies fever, soa. mild nonproductive cough with sore throat. 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, Other HEENT: Tonsil/Adenoidectomy - Present Medications Home Medications: Ambulatory Orders Medication Instructions Recorded Confirmed Fluticasone [Flonase] 2 sprays BERNARDO DAILY 05/29/15 02/24/21 Fluticasone/Salmeterol [Advair 1 inh INH BID 05/29/15 02/24/21 100-50 Diskus] Levothyroxine Sodium [Synthroid] 112 mcg PO DAILY 02/11/17 02/24/21 Albuterol 2.5 mg INH Q4H PRN #30 neb 11/15/17 02/24/21 Atorvastatin [Lipitor] 10 mg PO DAILY 02/24/21 02/24/21 Nirmatrelvir/Ritonavir [Paxlovid 1 each PO BID #10 tablet 04/19/23 2X150 mg-100 mg (Eua)] - Allergies Allergies/Adverse Reactions: Allergies Allergy/AdvReac Type Severity Reaction Status Date / Time Fish Containing Products Allergy Mild Edema Verified 04/19/23 05:41 benzonatate Allergy Respiratory Verified 04/19/23 05:41 [From Tessalon Perles] codeine AdvReac Intermediate Nausea/Vomi Verified 04/19/23 05:41 tting/Itchi ng Latex, Natural Rubber AdvReac Intermediate Itching Verified 04/19/23 05:41 povidone-iodine AdvReac Intermediate Itching Verified 04/19/23 05:41 [From Betadine] soap * [From Betadine] AdvReac Intermediate Itching Verified 04/19/23 05:41 Sulfa (Sulfonamide AdvReac Unknown Unknown Verified 04/19/23 05:41 Antibiotics) - Social History Does the pt smoke?: No Smoking Status: Never smoker Does the pt drink ETOH?: No Does the pt have substance abuse?: No - Immunizations Immunizations are current?: Yes - POLST Patient has POLST: No PD ED PE NORMAL - Vitals Vital signs reviewed: Yes - General General: Alert and oriented X 3, No acute distress, Well developed/nourished - HEENT HEENT: Atraumatic, PERRL, EOMI, Moist mucous membranes, Pharynx benign - Neck Neck: Supple, no meningeal sign - Cardiac Cardiac: RRR - Respiratory Respiratory: No respiratory distress, Clear bilaterally Results - Vitals Vitals: Vital Signs - 24 hr 04/19/23 05:36 Temperature 36 C L Heart Rate 85 Respiratory 20 Rate Blood Pressure 99/70 O2 Saturation 98 Oxygen O2 Source Room air PD Medical Decision Making - ED course ED course: 58yF p/w viral uri sx X 1 day. Well appearing with benign vitals and exam. Covid test sent and she will f/u at home. symptomatic care discussed. return precautions given. Departure - Departure Disposition: 01 Home, Self Care Clinical Impression: COVID-19 Condition: Good Instructions: COVID-19 [facility] Prescriptions: Nirmatrelvir/Ritonavir [Paxlovid 2X150 mg-100 mg (Eua)] 1 each PO BID #10 tablet Comments: You were seen in the ED for symptoms of covid-19. If your test comes positive you can start taking paxlovid (prescription printed for you). You should not take oxybutynin or cholesterol medicine (atorvastatin/rosuvastatin) while on paxlovid since they have drug-drug interactions. Please follow up with your primary care provider. Return to the ED for new or worsening symptoms or other concerns.
== END 2023-04-19 06:18 | disposition home or self-care (01) ==
LOC: ED 05:22
DX: U07.1 COVID-19 (principal)
CPT/HCPCS: 99283

== ENCOUNTER 2023-09-08 10:45 | Outpatient (CLI) | payer OTHER ==
--- NOTE | 2023-09-09 10:46 | Mammography Report ---
BILATERAL DIGITAL DIAGNOSTIC MAMMOGRAM 3D/2D: 09/08/2023 CLINICAL: Focal left breast pain. Due for bilateral. Comparison is made to exams dated: 01/31/2022 mammogram, 11/09/2020 mammogram, 10/22/2019 mammogram, 01/31 mammogram, 02/20/2017 mammogram, and 01/29/2017 mammogram - [facility]. There are scattered areas of fibroglandular density in both breasts (category b / 25%-50% glandular t issue). No significant masses, calcifications, or other findings are seen in either breast. IMPRESSION: INCOMPLETE: NEEDS ADDITIONAL IMAGING EVALUATION There is no mammographic abnormality seen in the left breast to correspond with the pain, however, ta rgeted ultrasound of the left breast is recommended and will be performed immediately following this exam. Based on the Tyrer Cuzick model (a risk assessment model) the patients lifetime risk is 5.8% and her 10 year risk is 1.9%. According to the ACR, ACS, and NCCN guidelines, an annual breast MRI exam hilton g with mammogram is recommended if the patients lifetime risk is 20% or greater. This exam was interpreted at Station ID: [id number]. NOTE: For mammograms, a report in lay terms will be sent to the patient. Approximately 15% of breast malignancies will not be visualized mammographically. In the management of a palpable breast mass, a negative mammogram must not discourage biopsy of a clinically suspicious lesion. Electronically Signed By: Heather Dai M.D. lk/:09/08/2023 11:38:34 ACR BI-RADS Category 0: Incomplete 3340F PARENCHYMAL PATTERN: (A) - The breast(s) demonstrate(s) scattered fibroglandular densities. BI-RADS CATEGORY: (0) - 0 Ultrasound [id number] Immediate follow-up LATERALITY: (B)
--- NOTE | 2023-09-09 10:46 | Ultrasound Report ---
LIMITED ULTRASOUND OF LEFT BREAST: 09/08/2023 CLINICAL: Diffuse left breast pain. Comparison is made to exams dated: 09/08/2023 mammogram, 01/31/2022 mammogram, 11/09/2020 ultrasound, 10/30 mammogram, 10/22/2019 mammogram, and 02/24/2018 mammogram - [facility]. Ultrasound of the left breast 4 o'clock region was performed on the area of interest. Lim scale terell ges of the real-time examination were reviewed. IMPRESSION: NEGATIVE There is no sonographic evidence of malignancy. There is no mammographic or sonographic abnormality seen in the left breast to correspond with the pa in, however, clinical followup is recommended. A 1 year screening mammogram is recommended. This exam was interpreted at Station ID: [id number]. Electronically Signed By: Heather Dai M.D. lk/:09/08/2023 11:47:32 Ultrasound BI-RADS: 1 Negative BI-RADS CATEGORY: (1) - 1 Mammogram [id number] 1 year screening LATERALITY: (B)
== END 2023-09-08 10:46 | disposition home or self-care (01) ==
LOC: DI 10:45
PROVIDERS: ATTEND Physician Assistant
DX: N64.4 Mastodynia (principal); R92.323 Mammographic fibroglandular density, bilateral breasts

== ENCOUNTER 2023-11-26 08:00 | Outpatient (CLI) | payer OTHER | END 2023-11-26 08:15 | disposition home or self-care (01) | LOC: LAB.N 08:00 | PROVIDERS: ATTEND Physician Assistant Medical | DX: N30.00 Acute cystitis without hematuria (principal) | CPT/HCPCS: 87086 ==

== ENCOUNTER 2023-12-12 09:20 | Outpatient (CLI) | payer OTHER ==
[2023-12-12 09:29] LABS: BILIRUBIN,URINE NEGATIVE (NEGATIVE); CLARITY,URINE CLEAR (CLEAR); GLUCOSE, URINE (UA) NEGATIVE (NEGATIVE); KETONES,URINE (UA) NEGATIVE (NEGATIVE); LEUKOCYTE ESTERASE, URINE NEGATIVE (NEGATIVE); NITRITE,URINE NEGATIVE (NEGATIVE); OCCULT BLOOD,URINE NEGATIVE (NEGATIVE); PH,URINE 5.5 PH (5.0-7.5); PROTEIN,URINE NEGATIVE (NEGATIVE); UROBILINOGEN,URINE 0.2 (NORMAL) E.U./dL (NORMAL)
== END 2023-12-12 09:21 | disposition home or self-care (01) ==
LOC: LAB 09:20
PROVIDERS: ATTEND Physician Assistant Medical
DX: N39.0 Urinary tract infection, site not specified (principal)
CPT/HCPCS: 81001; 81003; 87086